=== PATIENT | male | born 1995 | race American Indian/Alaskan Native ===

== ENCOUNTER 2020-07-26 23:17 | Inpatient (IN) | payer OTHER, SELFPAY ==
[2020-07-26] MEDS ORDERED: ROCURONIUM 50 MG/5 ML INJ IV ONE ×2 (23:21→23:34)
[2020-07-26] MEDS ORDERED: ETOMIDATE 20 MG/10 ML INJ IV ONE ×2 (23:22→23:34)
[2020-07-26] MEDS ORDERED: SODIUM CHLORIDE 0.9% 1000 ML 1,000 ML IV ONE (23:34)
[2020-07-26] MEDS ORDERED: levETIRAcetam 1000 MG/NS 0.75% 1,000 MG/100 ML BAG IV ONE (23:34)
[2020-07-26] MEDS ORDERED: MINERAL OIL/PETROLATUM, WHITE OPHTH OINT 3.5 GM OU PRN (23:35)
[2020-07-26] MEDS ORDERED: LIP THERAPY VASELINE TP PRN (23:35)
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
[2020-07-27 00:10] LABS: Mean Corpuscular HGB Conc 29 % (32-34); Mean Corpuscular Volume 88 fl (84-94); Platelet Count 334 K/mm3 (140-440); Red Blood Count 4.39 M/mm3 (3.65-5.03)
[2020-07-27 00:14] LABS: Hematocrit 38.7 % (35.5-45.6); Hemoglobin 11.3 gm/dl (11.8-15.2); Red Cell Distribution Width 20.7 % (13.2-15.2)
[2020-07-27 00:16] LABS: Albumin 4.8 g/dL (3.9-5)
--- NOTE | 2020-07-27 00:34 | XRay Report ---
CHEST 1 VIEW, 07/26/2020 10:56 PM CLINICAL INFORMATION/INDICATION: Endotracheal tube placement COMPARISON: None. FINDINGS: SUPPORT DEVICES: The distal tip of the endotracheal tube is located approximately 5.5 cm above the le claus the moreno. An esophagogastric tube is also been placed with distal tip overlying the proximal st omach. HEART: The cardiac silhouette is normal in size. LUNGS/PLEURA: The lungs are clear of focal airspace disease or significant pleural effusion. ADDITIONAL FINDINGS: No additional acute findings. IMPRESSION: 1. Placement of endotracheal tube and esophagogastric tube as above. Signer Name: Janki Rouse MD Signed: 07/27/2020 12:29 AM Workstation Name: [email or web address]
[2020-07-27] MEDS ORDERED: LORazepam 2 MG/ML VIAL IV ONE ×2 (01:44)
[2020-07-27] MEDS ORDERED: [UNRECOGNIZED DRUG - OTHER] IV ONE (02:17)
[2020-07-27] MEDS ORDERED: FOSPHENYTOIN IV ONE (02:17)
[2020-07-27] MEDS ORDERED: SODIUM CHLORIDE IV ONE (02:17)
[2020-07-27 03:01] LABS: Total Cells Counted 100
[2020-07-27 03:02] LABS: Anisocytosis 1+; Hypochromasia 1+
--- NOTE | 2020-07-27 04:02 | Cat Scan Report ---
Examination: CT of the head without contrast Clinical information: Seizure. Altered mental status. Comparison: None Technical: Multiple axial CT images of the head were obtained without intravenous contrast. Sagittal and coronal reformats were obtained. All CTs at this facility utilize dose reduction techniques inc luding automated exposure control, iterative reconstruction and weight based dosing when appropriate to reduce patient radiation dose to as low as reasonable achievable. Findings: INTRACRANIAL CONTENTS: There are confluent regions of hypodensity and associated volume loss within t he bilateral frontal lobes. There is no CT evidence of acute intracranial hemorrhage. There is no kris dence of mass effect or midline shift. The ventricular system is normal in size and configuration. SKULL: Evaluation of the skull demonstrates previous right frontal convexity craniectomy ORBITS: The bilateral orbits and globes appear normal PARANASAL SINUSES / MASTOID AIR CELLS: Paranasal sinuses and mastoid air cells appear clear. There is a low-density fluid collection soft tissue fluid collection surrounding the right craniectom y site measuring a maximum of 8 mm in thickness. Impression: 1. Confluent regions of hypodensity and volume loss within the bilateral frontal lobes. Findings may be secondary to previous trauma or ischemia. Please correlate with patient's clinical circumstances. 2. Postsurgical changes from right convexity craniectomy. Signer Name: Janki Rouse MD Signed: 07/27/2020 3:58 AM Workstation Name: [id number]
--- NOTE | 2020-07-27 04:44 | Consultation ---
History of Present Illness Consult date: 07/27/20 Requesting physician: MARCOS CLARK Reason for consult: hypoxemia, other (status epilepticus) History of present illness: Patient is intubated and sedated so all history comes from the chart. 24 y/o male with prior history of seizure and TBI (cause unknown) was found down at home seizing by his mother and continued to seize until EMS got there. Aborted at that time with ativan. Per report was hypoxic in the field so bagged here. Once in the ED sats only in the low 90's and ED felt patient needed intubation for airway protection. Sedated with Diprovan and taken to CT. While in CT, per nurse, patient continued to seize, on Diprovan and required and additional 4 of Ativan to abort. He was then given Phosphenytoin on top of the keppra load that he already recieved. He is currently sedated and has not had any further seizure like activity since then. Past History Past Medical History: seizures, other (TBI) Past Surgical History: Other (unable to obtain) Social history: other (unable to obtain) Family history: other (unable to obtain) Medications and Allergies Allergies Allergy/AdvReac Type Severity Reaction Status Date / Time Unable to Assess Allergy Unverified 09/15/19 11:05 Active Meds: Active Medications Hydrophilic Ointment (Lip Therapy Vaseline) 1 applic TP Q2HR PRN PRN Reason: Dry Lips Sodium Chloride (Nacl 0.9% 1000 Ml) 1,000 mls @ 125 mls/hr IV ONCE ONE Stop: 07/27/20 07:33 Last Admin: 07/27/20 00:23 Dose: 125 mls/hr Documented by: Propofol (Diprivan 10 Mg/Ml) 1,000 mg in 100 mls @ 2.46 mls/hr IV TITR ALTA; Protocol Last Titration: 07/27/20 00:15 Dose: 30 mcg/kg/min, 14.76 mls/hr Documented by: Multi-Ingred Cream/Lotion/Oil/Oint (Mineral Oil/Petrolatum, White Ophth Oint 3.5 Gm) 1 applic OU Q4HR PRN PRN Reason: Dry Eye(s) Review of Systems ROS unobtainable: due to endotracheal tube, due to mental status Physical Examination Vital signs: Vital Signs Pulse Ox 98 07/26/20 23:20 General appearance: other (sedated) ENT: other (orally intubated) Neck: supple Effort: normal Ascultation: Bilateral: clear Results - Laboratory Findings CBC and BMP: 07/26/20 23:44 07/26/20 23:44 Abnormal lab findings: Abnormal Labs 07/26/20 07/26/20 23:44 23:44 WBC 18.3 H Hgb 11.3 L MCH 26 L MCHC 29 L RDW 20.7 H Lymphocytes % (Manual) 36.0 H Monocytes % (Manual) 8.0 H Seg Neutrophils # Man 9.5 H Lymphocytes # (Manual) 6.6 H Monocytes # (Manual) 1.5 H Eosinophils # (Manual) 0.5 H Basophils # (Manual) 0.2 H Chloride 95.2 L Carbon Dioxide 10 L BUN 8 L Creatinine 1.9 H Glucose 255 H AST 58 H Total Creatine Kinase 1147 H - Diagnostic Findings Chest x-ray: image reviewed Assessment and Plan 24 y/o with prior TBI and seizures admitted with status epilepticus and acute respiratory failure. 1. Needs EEG on and off sedation if possible to make sure seizures have been aborted 2. Neurology consult 3. Need to speak with mother to get more history regarding meds, exposures, compliance etc 4. ELIA, likely volume related, or pending how long he was seizing. Agree with volume and trend CK levels 5. Guarded to poor prognosis. Per nursing patient was awake but not sure exactly what type of wakeness they were dealing with. Per documentation, patient could be have been seizing for an extended period of time. CCT 31 minutes.
[2020-07-27] MEDS ORDERED: ACETAMINOPHEN 325 MG TAB PO PRN (05:37)
[2020-07-27] MEDS ORDERED: ALBUTEROL 2.5 MG/3 ML NEBU IH PRN (05:37)
[2020-07-27] MEDS ORDERED: ONDANSETRON 4 MG/2 ML INJ IV PRN (05:37)
[2020-07-27] MEDS ORDERED: hydrALAZINE 20 MG/1 ML INJ IV PRN (05:40)
--- NOTE | 2020-07-27 05:45 | History and Physical Report ---
History of Present Illness Date of examination: 07/27/20 Date of admission: 07/27/20 04:09 Chief complaint: Hypoxemia Seizure History of present illness: 24-year-old -[place] male with past medical history of seizure and TBI was brought to the emergency room because of prolonged seizure activity. His mother came home to find the patient seizing and called for EMS. He continued to seize until EMS arrived and for at least 5 minutes afterwards. EMS gave the patient 2 mg of lorazepam and the seizures stopped. However the patient had a room air pulse ox of about 75% and was exhibiting some shallow breathing so they began doing bag valve ventilation. He had an Accu-Chek in route that was about 200. When the patient arrived to the emergency department he was brought into bed #1. Without bag valve ventilation the patient's oxygen saturation goes down into the low 90s and he has bradypnea with shallow respirations. The patient was intubated for protection of airway. Past History Past Medical History: seizures, other (TBI) Past Surgical History: Other (unable to obtain) Social history: other (unable to obtain) Family history: other (unable to obtain) Medications and Allergies Allergies Allergy/AdvReac Type Severity Reaction Status Date / Time Unable to Assess Allergy Unverified 09/15/19 11:05 Active Meds: Active Medications Acetaminophen (Acetaminophen 325 Mg Tab) 650 mg PO Q4H PRN PRN Reason: Pain MILD(1-3)/Fever >100.5/DONG Albuterol (Albuterol 2.5 Mg/3 Ml Nebu) 2.5 mg IH Q4HRT PRN PRN Reason: Shortness Of Breath Albuterol/Ipratropium (Ipratropium/Albuterol Sulfate 3 Ml Ampul.Neb) 1 ampul IH Q6HRT ALTA Hydrophilic Ointment (Lip Therapy Vaseline) 1 applic TP Q2HR PRN PRN Reason: Dry Lips Sodium Chloride (Nacl 0.9% 1000 Ml) 1,000 mls @ 125 mls/hr IV ONCE ONE Stop: 07/27/20 07:33 Last Admin: 07/27/20 00:23 Dose: 125 mls/hr Documented by: Propofol (Diprivan 10 Mg/Ml) 1,000 mg in 100 mls @ 2.46 mls/hr IV TITR ALTA; Protocol Last Titration: 07/27/20 00:15 Dose: 30 mcg/kg/min, 14.76 mls/hr Documented by: Multi-Ingred Cream/Lotion/Oil/Oint (Mineral Oil/Petrolatum, White Ophth Oint 3.5 Gm) 1 applic OU Q4HR PRN PRN Reason: Dry Eye(s) Ondansetron HCl (Ondansetron 4 Mg/2 Ml Inj) 4 mg IV Q8H PRN PRN Reason: Nausea And Vomiting Sodium Chloride (Sodium Chloride 0.9% 10 Ml Flush Syringe) 10 ml IV BID ALTA Sodium Chloride (Sodium Chloride 0.9% 10 Ml Flush Syringe) 10 ml IV PRN PRN PRN Reason: LINE FLUSH Review of Systems Respiratory: shortness of breath, dyspnea on exertion Neurological: seizures Exam - Constitutional Vitals: Temp Pulse Resp BP Pulse Ox 98.7 F 80 16 124/69 100 07/27/20 01:31 07/27/20 04:30 07/27/20 04:30 07/27/20 04:30 07/27/20 04:30 General appearance: Present: severe distress, well-nourished - EENT Eyes: Present: PERRL ENT: hearing intact, clear oral mucosa - Neck Neck: Present: supple, normal ROM - Respiratory Respiratory effort: normal Respiratory: bilateral: diminished - Cardiovascular Heart Sounds: Present: S1 & S2. Absent: rub, click - Extremities Extremities: pulses symmetrical, No edema Peripheral Pulses: within normal limits - Abdominal General gastrointestinal: Present: soft, non-tender, non-distended, normal bowel sounds Male genitourinary: Present: normal - Integumentary Integumentary: Present: clear, warm, dry - Musculoskeletal Musculoskeletal: gait normal, strength equal bilaterally - Neurologic Neurologic: CNII-XII intact, moves all extremities, other (Patient is unresponsive patient is status post intubation) Results - Labs CBC & Chem 7: 07/26/20 23:44 07/26/20 23:44 Labs: Laboratory Last Values WBC 18.3 K/mm3 (4.5-11.0) H 07/26/20 23:44 RBC 4.39 M/mm3 (3.65-5.03) 07/26/20 23:44 Hgb 11.3 gm/dl (11.8-15.2) L 07/26/20 23:44 Hct 38.7 % (35.5-45.6) 07/26/20 23:44 MCV 88 fl (84-94) 07/26/20 23:44 MCH 26 pg (28-32) L 07/26/20 23:44 MCHC 29 % (32-34) L 07/26/20 23:44 RDW 20.7 % (13.2-15.2) H 07/26/20 23:44 Plt Count 334 K/mm3 (140-440) 07/26/20 23:44 Lymph # (Auto) Pharmacy Resource Tech 07/26/20 23:44 Add Manual Diff Complete 07/26/20 23:44 Total Counted 100 07/26/20 23:44 Seg Neuts % (Manual) 52.0 % (40.0-70.0) 07/26/20 23:44 Lymphocytes % (Manual) 36.0 % (13.4-35.0) H 07/26/20 23:44 Monocytes % (Manual) 8.0 % (0.0-7.3) H 07/26/20 23:44 Eosinophils % (Manual) 3.0 % (0.0-4.3) 07/26/20 23:44 Basophils % (Manual) 1.0 % (0.0-1.8) 07/26/20 23:44 Nucleated RBC % Not Reportable 07/26/20 23:44 Seg Neutrophils # Man 9.5 K/mm3 (1.8-7.7) H 07/26/20 23:44 Band Neutrophils # 0.0 K/mm3 07/26/20 23:44 Lymphocytes # (Manual) 6.6 K/mm3 (1.2-5.4) H 07/26/20 23:44 Abs React Lymphs (Man) 0.0 K/mm3 07/26/20 23:44 Monocytes # (Manual) 1.5 K/mm3 (0.0-0.8) H 07/26/20 23:44 Eosinophils # (Manual) 0.5 K/mm3 (0.0-0.4) H 07/26/20 23:44 Basophils # (Manual) 0.2 K/mm3 (0.0-0.1) H 07/26/20 23:44 Metamyelocytes # 0.0 K/mm3 07/26/20 23:44 Myelocytes # 0.0 K/mm3 07/26/20 23:44 Promyelocytes # 0.0 K/mm3 07/26/20 23:44 Blast Cells # 0.0 K/mm3 07/26/20 23:44 WBC Morphology Not Reportable 07/26/20 23:44 Hypersegmented Neuts Not Reportable 07/26/20 23:44 Hyposegmented Neuts Not Reportable 07/26/20 23:44 Hypogranular Neuts Not Reportable 07/26/20 23:44 Smudge Cells Not Reportable 07/26/20 23:44 Toxic Granulation Not Reportable 07/26/20 23:44 Toxic Vacuolation Not Reportable 07/26/20 23:44 Dohle Bodies Not Reportable 07/26/20 23:44 Pelger-Huet Anomaly Not Reportable 07/26/20 23:44 Sherlyn Rods Not Reportable 07/26/20 23:44 Platelet Estimate Not Reportable 07/26/20 23:44 Clumped Platelets Not Reportable 07/26/20 23:44 Plt Clumps, EDTA Not Reportable 07/26/20 23:44 Large Platelets Not Reportable 07/26/20 23:44 Giant Platelets Not Reportable 07/26/20 23:44 Platelet Satelliting Not Reportable 07/26/20 23:44 Plt Morphology Comment Not Reportable 07/26/20 23:44 RBC Morphology Not Reportable 07/26/20 23:44 Dimorphic RBCs Not Reportable 07/26/20 23:44 Polychromasia Not Reportable 07/26/20 23:44 Hypochromasia 1+ 07/26/20 23:44 Poikilocytosis Not Reportable 07/26/20 23:44 Anisocytosis 1+ 07/26/20 23:44 Microcytosis Few 07/26/20 23:44 Macrocytosis Not Reportable 07/26/20 23:44 Spherocytes Not Reportable 07/26/20 23:44 Pappenheimer Bodies Not Reportable 07/26/20 23:44 Sickle Cells Not Reportable 07/26/20 23:44 Target Cells Not Reportable 07/26/20 23:44 Tear Drop Cells Not Reportable 07/26/20 23:44 Ovalocytes Not Reportable 07/26/20 23:44 Helmet Cells Not Reportable 07/26/20 23:44 Denis-Ayr Bodies Not Reportable 07/26/20 23:44 [place] Rings Not Reportable 07/26/20 23:44 [place] Cells Not Reportable 07/26/20 23:44 Bite Cells Not Reportable 07/26/20 23:44 Crenated Cell Not Reportable 07/26/20 23:44 Elliptocytes Not Reportable 07/26/20 23:44 Acanthocytes (Spur) Not Reportable 07/26/20 23:44 Rouleaux Not Reportable 07/26/20 23:44 Hemoglobin C Crystals Not Reportable 07/26/20 23:44 Schistocytes Not Reportable 07/26/20 23:44 Malaria parasites Not Reportable 07/26/20 23:44 Edin Bodies Not Reportable 07/26/20 23:44 Hem Pathologist Commnt No 07/26/20 23:44 Sodium 137 mmol/L (137-145) 07/26/20 23:44 Potassium 4.2 mmol/L (3.6-5.0) 07/26/20 23:44 Chloride 95.2 mmol/L (98-107) L 07/26/20 23:44 Carbon Dioxide 10 mmol/L (22-30) L 07/26/20 23:44 Anion Gap 36 mmol/L 07/26/20 23:44 BUN 8 mg/dL (9-20) L 07/26/20 23:44 Creatinine 1.9 mg/dL (0.8-1.3) H 07/26/20 23:44 Estimated GFR 54 ml/min 07/26/20 23:44 BUN/Creatinine Ratio 4 % 07/26/20 23:44 Glucose 255 mg/dL (75-100) H 07/26/20 23:44 Calcium 9.0 mg/dL (8.4-10.2) 07/26/20 23:44 Total Bilirubin 0.40 mg/dL (0.1-1.2) 07/26/20 23:44 AST 58 units/L (5-40) H 07/26/20 23:44 ALT 23 units/L (7-56) 07/26/20 23:44 Alkaline Phosphatase 78 units/L (35-129) 07/26/20 23:44 Total Creatine Kinase 1147 units/L (55-170) H 07/26/20 23:44 Total Protein 7.8 g/dL (6.3-8.2) 07/26/20 23:44 Albumin 4.8 g/dL (3.9-5) 07/26/20 23:44 Albumin/Globulin Ratio 1.6 % 07/26/20 23:44 TSH 3.550 mlU/mL (0.270-4.200) 07/26/20 23:44 Plasma/Serum Alcohol < 0.01 % (0-0.07) 07/26/20 23:44 - Imaging and Cardiology CT Scan - head: report reviewed Assessment and Plan VTE prophylaxis?: Chemical Plan of care discussed with patient/family: Yes - Patient Problems (1) Acute respiratory failure Current Visit: Yes Status: Acute Qualifiers: Respiratory failure complication: unspecified whether with hypoxia or hypercapnia Qualified Code(s): J96.00 - Acute respiratory failure, unspecified whether with hypoxia or hypercapnia Plan to address problem: Admit the patient to the ICU. Patient is status post intubation. DuoNeb by nebulizer every 4 hours. Albuterol by nebulizer every 4 hours as needed. Patient is seen and evaluated by pulmonary (2) Status epilepticus Current Visit: Yes Status: Acute Plan to address problem: Keppra 1000 mg IV x1 dose then 500 mg IV every 12 hours. Patient also get fosphenytoin 6100 g IV x1 dose. We order EEG. Ativan as needed. We also order MRI of the brain without IV contrast. Consult neurology in the morning if needed (3) History of traumatic brain injury Current Visit: Yes Status: Acute Plan to address problem: Stable. We will put the patient on Keppra 500 mg IV every 12 hours. Ativan as needed EEG and MRI of the brain without contrast. Consult neurology in the morning if needed (4) Hyperglycemia Current Visit: Yes Status: Acute Plan to address problem: We will monitor the glucose closely. If needed we will put the patient on insulin sliding scale. Repeat BMP in the morning (5) DVT prophylaxis Current Visit: Yes Status: Acute Plan to address problem: Heparin 5000 units subcu every 8 hours for DVT prophylaxis. Pepcid 20 mg IV twice daily for GI prophylaxis. Patient is a full code.
[2020-07-27] MEDS ORDERED: D5W/0.9% NACL 1,000 ML IV SCH (06:00)
[2020-07-27 06:44] LABS: ABG Base Excess -3.2 mmol/L (-2.0-3.0); ABG HCO3 20.9 mmol/L (20.0-26.0); ABG Methemoglobin 0.5 % (0.0-1.5); ABG Oxygen Saturation 98.5 % (95.0-99.0); ABG PH 7.406 pH Units (7.350-7.450); ABG PO2 125.7 mm Hg (80.0-90.0)
--- NOTE | 2020-07-27 07:51 | Consultation ---
History of Present Illness Consult date: 07/27/20 Reason for Consult: Status Epilepticus History of present illness: Hypoxemia Seizure History of present illness: 24-year-old -[place] male with past medical history of seizure and TBI was brought to the emergency room because of prolonged seizure activity. His mother came home to find the patient seizing and called for EMS. He continued to seize until EMS arrived and for at least 5 minutes afterwards. EMS gave the patient 2 mg of lorazepam and the seizures stopped. However the patient had a room air pulse ox of about 75% and was exhibiting some shallow breathing so they began doing bag valve ventilation. He had an Accu-Chek in route that was about 200. When the patient arrived to the emergency department he was brought into bed #1. Without bag valve ventilation the patient's oxygen saturation goes down into the low 90s and he has bradypnea with shallow respirations. The patient was intubated for protection of airway. he is currently intubated sedated with Propofol 30 Mc No witnessed seizure Past History Past Medical History: seizures, other (TBI) Past Surgical History: Other (unable to obtain) Social history: other (unable to obtain) Family history: other (unable to obtain) Medications and Allergies Allergies Allergy/AdvReac Type Severity Reaction Status Date / Time Unable to Assess Allergy Unverified 09/15/19 11:05 Active Meds: Active Medications Acetaminophen (Acetaminophen 325 Mg Tab) 650 mg PO Q4H PRN PRN Reason: Pain MILD(1-3)/Fever >100.5/DONG Albuterol (Albuterol 2.5 Mg/3 Ml Nebu) 2.5 mg IH Q4HRT PRN PRN Reason: Shortness Of Breath Albuterol/Ipratropium (Ipratropium/Albuterol Sulfate 3 Ml Ampul.Neb) 1 ampul IH Q6HRT ALTA Hydrophilic Ointment (Lip Therapy Vaseline) 1 applic TP Q2HR PRN PRN Reason: Dry Lips Sodium Chloride (Nacl 0.9% 1000 Ml) 1,000 mls @ 125 mls/hr IV ONCE ONE Stop: 07/27/20 07:33 Last Admin: 07/27/20 00:23 Dose: 125 mls/hr Documented by: Propofol (Diprivan 10 Mg/Ml) 1,000 mg in 100 mls @ 2.46 mls/hr IV TITR ALTA; Protocol Last Titration: 07/27/20 00:15 Dose: 30 mcg/kg/min, 14.76 mls/hr Documented by: Multi-Ingred Cream/Lotion/Oil/Oint (Mineral Oil/Petrolatum, White Ophth Oint 3.5 Gm) 1 applic OU Q4HR PRN PRN Reason: Dry Eye(s) Ondansetron HCl (Ondansetron 4 Mg/2 Ml Inj) 4 mg IV Q8H PRN PRN Reason: Nausea And Vomiting Sodium Chloride (Sodium Chloride 0.9% 10 Ml Flush Syringe) 10 ml IV BID ALTA Sodium Chloride (Sodium Chloride 0.9% 10 Ml Flush Syringe) 10 ml IV PRN PRN PRN Reason: LINE FLUSH Review of Systems Respiratory: shortness of breath, dyspnea on exertion Neurological: seizures Past History Past Medical History: seizures, other (TBI) Past Surgical History: Other (unable to obtain) Social history: other (unable to obtain) Family history: other (unable to obtain) Medications and Allergies Allergies Allergy/AdvReac Type Severity Reaction Status Date / Time Unable to Assess Allergy Unverified 09/15/19 11:05 Home Medications Medication Instructions Recorded Confirmed Last Taken Type No Known Home Medications [No 07/27/20 07/27/20 Unknown History Reported Home Medications] Active Meds: Active Medications Acetaminophen (Acetaminophen 325 Mg Tab) 650 mg PO Q4H PRN PRN Reason: Pain MILD(1-3)/Fever >100.5/DONG Albuterol (Albuterol 2.5 Mg/3 Ml Nebu) 2.5 mg IH Q4HRT PRN PRN Reason: Shortness Of Breath Albuterol/Ipratropium (Ipratropium/Albuterol Sulfate 3 Ml Ampul.Neb) 1 ampul IH Q6HRT ALTA Famotidine (Famotidine 20 Mg/2 Ml Inj) 20 mg IV QAM ALTA Heparin Sodium (Porcine) (Heparin 5,000 Unit/1 Ml Vial) 5,000 unit SUB-Q Q8HR ALTA Hydralazine HCl (Hydralazine 20 Mg/1 Ml Inj) 10 mg IV Q6H PRN PRN Reason: htn Hydrophilic Ointment (Lip Therapy Vaseline) 1 applic TP Q2HR PRN PRN Reason: Dry Lips Propofol (Diprivan 10 Mg/Ml) 1,000 mg in 100 mls @ 2.46 mls/hr IV TITR ALTA; Protocol Last Titration: 07/27/20 00:15 Dose: 30 mcg/kg/min, 14.76 mls/hr Documented by: Dextrose/Sodium Chloride (D5ns) 1,000 mls @ 100 mls/hr IV DIRECT ALTA Levetiracetam 500 mg/ Dextrose 105 mls @ 400 mls/hr IV Q12HR ALTA Multi-Ingred Cream/Lotion/Oil/Oint (Mineral Oil/Petrolatum, White Ophth Oint 3.5 Gm) 1 applic OU Q4HR PRN PRN Reason: Dry Eye(s) Ondansetron HCl (Ondansetron 4 Mg/2 Ml Inj) 4 mg IV Q8H PRN PRN Reason: Nausea And Vomiting Sodium Chloride (Sodium Chloride 0.9% 10 Ml Flush Syringe) 10 ml IV BID ALTA Sodium Chloride (Sodium Chloride 0.9% 10 Ml Flush Syringe) 10 ml IV PRN PRN PRN Reason: LINE FLUSH Physical Examination - Vital Signs Vital Signs: Vital Signs Pulse Ox 98 07/26/20 23:20 - Constitutional General appearance: comfortable - EENT EENT: Present: PERRL - Respiratory Respiratory: Present: chest non-tender, lungs clear, rhonchi - Cardiovascular Cardiovascular: Present: regular rate, normal S1, normal S2 Extremities: Present: no peripheral edema bilatateraly - Gastrointestinal Gastrointestinal: Present: normoactive bowel sounds - Integumentary Integumentary: Present: normal - Neurologic Cranial nerve examination: PERRL, EOMI, intact Speech examination: other (intubated and sedated) Sensorimotor examination: intact Detailed motor examination: other (slight withdrawal to pain stimuli) Results - Laboratory Findings CBC and BMP: 07/27/20 10:41 07/27/20 10:41 Abnormal Lab Findings: Abnormal Labs 07/26/20 07/26/20 07/27/20 23:44 23:44 Unknown WBC 18.3 H Hgb 11.3 L MCH 26 L MCHC 29 L RDW 20.7 H Lymphocytes % (Manual) 36.0 H Monocytes % (Manual) 8.0 H Seg Neutrophils # Man 9.5 H Lymphocytes # (Manual) 6.6 H Monocytes # (Manual) 1.5 H Eosinophils # (Manual) 0.5 H Basophils # (Manual) 0.2 H ABG pO2 125.7 H ABG Base Excess -3.2 L ABG Hemoglobin 10.6 L Chloride 95.2 L Carbon Dioxide 10 L BUN 8 L Creatinine 1.9 H Glucose 255 H AST 58 H Total Creatine Kinase 1147 H Assessment and Plan Assessment and Plan # Acute respiratory failure -whether with hypoxia or hypercapnia - related to seizure R/O infection -Admit the patient to the ICU. Patient is status post intubation. DuoNeb by nebulizer every 4 hours. Albuterol by nebulizer every 4 hours as needed. Patient is seen and evaluated by pulmonary # Status epilepticus -Keppra 1000 mg IV x1 dose -then 1000 mg IV every 12 hours. - Patient also get fosphenytoin 6100 g IV x1 dose. - EEG today. - Ativan as needed. - We also order MRI of the brain w/o IV contrast. -Ct brain showed bifrontal hypodensity # History of traumatic brain injury -Stable. # Hyperglycemia -We will monitor the glucose closely. # DVT prophylaxis -Heparin 5000 units subcu every 8 hours for DVT prophylaxis. - Pepcid 20 mg IV twice daily for GI prophylaxis. - Patient is a full code.
[2020-07-27] MEDS ORDERED: DEXTROSE 50% IN WATER (25GM) 50 ML SYRINGE IV PRN (08:09)
[2020-07-27] MEDS: IPRATROPIUM/ALBUTEROL SULFATE 3 ML AMPUL.NEB IH SCH ×3 (08:09→19:58)
--- NOTE | 2020-07-27 08:23 | XRay Report ---
CHEST - 1 VIEW 0713 hours INDICATION: follow up respiratory failure COMPARISON: Yesterday FINDINGS: Support devices: Stable positioning of the endotracheal tube and nasogastric tube Heart: Normal Lungs/pleura: Left basilar atelectatic changes have nearly resolved. The lungs are clear otherwise. Additional findings: None. IMPRESSION: Near normal AP chest. Minor left basilar atelectasis remains. Signer Name: Krishna Aceves Jr, MD Signed: 07/27/2020 8:18 AM Workstation Name: [id number]
[2020-07-27] MEDS ORDERED: FAMOTIDINE 20 MG/2 ML INJ IV SCH (10:00)
[2020-07-27] MEDS ORDERED: levETIRAcetam 500 MG in DEXTROSE 5% IN WATER 100 ML IV SCH (10:00)
[2020-07-27] MEDS: FAMOTIDINE 20 MG/2 ML INJ IV SCH ×2 (10:07→21:10)
[2020-07-27] MEDS: INSULIN REGULAR, HUMAN 100 UNITS/1 ML SUB-Q SCH ×3 (10:08→18:38)
[2020-07-27] MEDS: HEPARIN 5,000 UNIT/1 ML VIAL SUB-Q SCH ×3 (10:09→21:10)
[2020-07-27 11:05] LABS: Hematocrit 38.8 % (35.5-45.6); Hemoglobin 12.2 gm/dl (11.8-15.2); Mean Corpuscular HGB Conc 32 % (32-34); Mean Corpuscular Volume 80 fl (84-94); Platelet Count 211 K/mm3 (140-440); Red Blood Count 4.83 M/mm3 (3.65-5.03)
[2020-07-27 11:08] LABS: BUN/Creatinine Ratio 6; Blood Urea Nitrogen 8 mg/dL (9-20); Calcium 9.2 mg/dL (8.4-10.2); Hemolysis Index 6
[2020-07-27 11:21] LABS: Red Cell Distribution Width 20.3 % (13.2-15.2)
[2020-07-27] MEDS ORDERED: LIPASE 10,500/PROTEASE 25,000/AMYLASE 43,750 (UNITS) DR CAP FEEDTUBE PRN (12:05)
[2020-07-27] MEDS ORDERED: SIMPLE SYRUP 15 ML FEEDTUBE PRN ×2 (12:05)
[2020-07-27] MEDS ORDERED: SODIUM BICARBONATE 325 MG TAB FEEDTUBE PRN (12:05)
[2020-07-27 12:15] LABS: Amphetamine Screen,Urine Negative; Benzodiazepines Screen,Urine Negative; Cocaine Screen,Urine Negative; Methadone Screen,Urine Negative; Opiate Screen,Urine Negative
[2020-07-27 12:21] LABS: Bacteria,Urine 1+ /HPF (Negative); Bilirubin,Urine NEG (Negative); Blood,Urine MOD (Negative); Color,Urine Straw (Yellow); Mucus,Urine FEW /HPF; Protein,Urine <15 mg/dL mg/dL (Negative); Triple Phosphate Crystal,Urine FEW; Urobilinogen,Urine < 2.0 mg/dL (<2.0)
[2020-07-27 13:00] LABS: Cannabinoid Screen,Urine PRESUMPTIVE POSITIVE
[2020-07-27] MEDS: levETIRAcetam 1,000 MG in DEXTROSE 5% IN WATER 100 ML IV SCH ×2 (15:57→21:12)
--- NOTE | 2020-07-27 17:31 | Event Note ---
This is a 24-year-old male with seizures and TBI presents the emergency department on 07/27 after being found down at home seizing by his mother and continued to seize until EMS arrival and patient was administered 2 mg of Ativan to report seizures. Patient was hypoxic at this time with shallow breathing and was bagged. On arrival to the emergency department patient was hypoxic to the low 90s with shallow respirations and bradypnea and was intubated for airway protection. Patient was sedated with dipper Van and taken to CT and while the patient continued to seize and required additional 4 mg of Ativan to abort. Patient was loaded with Keppra and received fosphenytoin for continued seizure activity. Lab work revealed leukocytosis, acute kidney injury, metabolic acidosis, hyperglycemia and rhabdomyolysis. Patient was admitted to the hospital service with status epilepticus, acute respiratory failure, acute kidney injury, hyperglycemia and rhabdomyolysis with consults to [facility] and his neurologist. 07/27: Neurology was consulted this morning, MRI brain pending, Ntr consult placed. KUB ordered to start TF. EEG completed and per neurology it is remarkable for diffuse slowing with no eplieptiform discharges noted. PE: Constitutional: Patient sedated on mechanical ventilation Neuro: Pupils equal and reactive, cranium with postoperative changes, does not follow commands, sedated CV: S1/S2 auscultated, no murmur or gallop appreciated, peripheral pulses palpable x4, cap refill less than 3 seconds x 4 extremities Respiratory: O ETT, on assist control ventilation tidal volume 500, rate of 16, PEEP of 6 and 30% FiO2 at the time of my examination, CTA, regular rate and rhythm GI: NG tube clamped, abdomen nondistended nontender, bowel sounds x4 quadrants : Voiding Skin: CDI, warm, dry MS: Unable to assess given neurological status in most likely postictal state This is a 24-year-old male with seizures and TBI was monitored for status epilepticus, acute respiratory failure, hyperglycemia, acute kidney injury and rhabdomyolysis Status epilepticus Acute hypoxic respiratory failure Acute kidney injury Rhabdomyolysis Leukocytosis (improved) Hypochloremia (resolved) Metabolic acidosis (resolved) UDS positive for marijuana COVID 19 PUI, ruled out Hyperglycemia Hx of TBI Hx of Seizures -[facility], neurology consulted, patient recommendations -Keppra 1000 mg x 1, fosphenytoin 1600 mgx1 in the emergency department -Keppra 1000 mg twice daily -Ativan as needed -Seizure and aspiration precautions -Hydralazine PPI -SSI, Accu-Cheks every 6 -07/27 EEG pending official read -07/27 MRI Brain pending -07/27 CXR shows some minor left basilar atelectasis -07/26 CT head shows confluent regions of hypodensity and volume loss within the bilateral frontal lobes, findings may be secondary to previous trauma or ischemia, postsurgical changes from right convexity craniectomy, no evidence of mass-effect or midline shift, or acute intracranial hemorrhage DVT/GI prophylaxis: Heparin subcu, SCDs to bilateral lower extremities, PPI Disposition: ICU The high probability of a clinically significant, sudden or life threatening deterioration of the [multi] system(s) required my full and direct attention, intervention and personal management. The aggregate critical care time was [35] minutes. This time is in addition to time spent performing reported procedures but includes the following: [x] Data Review and interpretation [x] Patient assessment and monitoring of vital signs [x] Documentation [x] Medication orders and management
--- NOTE | 2020-07-27 18:08 | XRay Report ---
ABDOMEN 1 VIEW INDICATION / CLINICAL INFORMATION: NGT placement. COMPARISON: Not available. FINDINGS: TUBES / LINES: An NG tube has been placed with the tip projecting over the gastric fundus and the vale ehole of the tube located over the distal third of the esophagus. BOWEL GAS PATTERN: No dilated bowel loops are seen. The colon contains a large amount of stool. FREE AIR / EXTRALUMINAL GAS: None seen. ADDITIONAL FINDINGS: No significant additional findings. IMPRESSION: NG tube as above. Advancement of the tube by 5 cm should result in the sidehole of the tube being loc ated in the stomach. Signer Name: Zeferino Ashton MD Signed: 07/27/2020 6:04 PM Workstation Name: [id number]
[2020-07-28] MEDS: IPRATROPIUM/ALBUTEROL SULFATE 3 ML AMPUL.NEB IH SCH ×4 (05:21→21:57)
--- NOTE | 2020-07-28 06:04 | XRay Report ---
CHEST 1 VIEW, 07/28/2020 1:31 AM CLINICAL INFORMATION/INDICATION: Respiratory failure COMPARISON: Chest radiograph, 07/27/2020 at 7:13 AM FINDINGS: SUPPORT DEVICES: Endotracheal tube and esophagogastric tube remain in stable position. HEART: The cardiac silhouette is normal in size. LUNGS/PLEURA: Lungs are clear of focal airspace disease or significant pleural effusion. ADDITIONAL FINDINGS: No additional acute findings. IMPRESSION: 1. Stable appearance of the chest. Signer Name: Janki Rouse MD Signed: 07/28/2020 6:00 AM Workstation Name: [id number]
[2020-07-28] MEDS: HEPARIN 5,000 UNIT/1 ML VIAL SUB-Q SCH ×3 (06:12→23:34)
[2020-07-28] MEDS: INSULIN REGULAR, HUMAN 100 UNITS/1 ML SUB-Q SCH ×4 (06:13→18:26)
[2020-07-28] MEDS: LORazepam 2 MG/ML VIAL IV PRN ×2 (06:14→23:49)
[2020-07-28 06:58] LABS: Basophils % (Auto) 0.3 % (0.0-1.8); Eosinophils # (Auto) 0.1 K/mm3 (0.0-0.4); Eosinophils % (Auto) 1.1 % (0.0-4.3); Hematocrit 34.6 % (35.5-45.6); Hemoglobin 11.1 gm/dl (11.8-15.2); Lymphocytes # (Auto) 0.9 K/mm3 (1.2-5.4); Lymphocytes % (Auto) 8.9 % (13.4-35.0); Mean Corpuscular HGB Conc 32 % (32-34); Mean Corpuscular Volume 81 fl (84-94); Monocytes # (Auto) 1.1 K/mm3 (0.0-0.8); Monocytes % (Auto) 11.1 % (0.0-7.3); Platelet Count 179 K/mm3 (140-440); Red Blood Count 4.28 M/mm3 (3.65-5.03)
[2020-07-28 07:01] LABS: Red Cell Distribution Width 20.3 % (13.2-15.2)
[2020-07-28 07:10] LABS: BUN/Creatinine Ratio 8; Blood Urea Nitrogen 8 mg/dL (9-20); Calcium 9.1 mg/dL (8.4-10.2); Hemolysis Index 10
--- NOTE | 2020-07-28 10:38 | Progress Note ---
Assessment and Plan Assessment and Plan # Acute respiratory failure -Today more interactive moving all limbs no witnessed seizure since admission -On Keppra 1000 mg bid -MRI is pending -EEG -- mild diffuse slowing -whether with hypoxia or hypercapnia - related to seizure R/O infection -Admit the patient to the ICU. Patient is status post intubation. DuoNeb by nebulizer every 4 hours. Albuterol by nebulizer every 4 hours as needed. Patient -is seen and evaluated by pulmonary - # Status epilepticus -Keppra 1000 mg IV x1 dose -then 1000 mg IV every 12 hours. - Patient also get fosphenytoin 6100 g IV x1 dose. - EEG diffuse slowing - Ativan as needed. - We also order MRI of the brain w/o IV contrast. -Ct brain showed bifrontal hypodensity # History of traumatic brain injury -Stable. # Hyperglycemia -We will monitor the glucose closely. # DVT prophylaxis -Heparin 5000 units subcu every 8 hours for DVT prophylaxis. - Pepcid 20 mg IV twice daily for GI prophylaxis. - Patient is a full code. Subjective Date of service: 07/28/20 Principal diagnosis: Seizure Interval history: doing well still intubated and sedated on [facility] [place] propofol moving all limbs follow command No witnessed seizure EEG is remarkable for mild slowing 5-7 HZ . no epileptiform discharges is noted MRI is pending Objective - Vital Sign Vital Signs - 12hr 07/27/20 07/27/20 07/27/20 23:00 23:30 23:54 Temperature Pulse Rate 83 83 84 Pulse Rate [ Anterior Bilateral Throughout] Respiratory 16 17 16 Rate Respiratory Rate [Anterior Bilateral Throughout] Blood Pressure 125/67 119/69 119/69 O2 Sat by Pulse 100 100 100 Oximetry 07/28/20 07/28/20 07/28/20 00:00 00:30 00:48 Temperature 98.9 F Pulse Rate 90 111 H 110 H Pulse Rate [ Anterior Bilateral Throughout] Respiratory 16 19 Rate Respiratory Rate [Anterior Bilateral Throughout] Blood Pressure 138/83 138/83 138/73 O2 Sat by Pulse 100 100 100 Oximetry 07/28/20 07/28/20 07/28/20 01:00 01:30 01:58 Temperature Pulse Rate 92 H 87 Pulse Rate [ 94 H Anterior Bilateral Throughout] Respiratory 16 18 Rate Respiratory 20 Rate [Anterior Bilateral Throughout] Blood Pressure 140/79 138/73 O2 Sat by Pulse 100 95 Oximetry 07/28/20 07/28/20 07/28/20 02:00 02:30 03:00 Temperature Pulse Rate 87 86 85 Pulse Rate [ Anterior Bilateral Throughout] Respiratory 18 17 16 Rate Respiratory Rate [Anterior Bilateral Throughout] Blood Pressure 113/64 137/80 124/71 O2 Sat by Pulse 97 100 99 Oximetry 07/28/20 07/28/20 07/28/20 03:23 03:30 04:00 Temperature 99.1 F Pulse Rate 88 84 Pulse Rate [ Anterior Bilateral Throughout] Respiratory 16 16 Rate Respiratory Rate [Anterior Bilateral Throughout] Blood Pressure 127/72 125/78 O2 Sat by Pulse 100 100 Oximetry 07/28/20 07/28/20 07/28/20 04:30 05:00 05:30 Temperature Pulse Rate 88 89 108 H Pulse Rate [ Anterior Bilateral Throughout] Respiratory 16 16 13 Rate Respiratory Rate [Anterior Bilateral Throughout] Blood Pressure 125/73 123/68 136/94 O2 Sat by Pulse 100 100 100 Oximetry 07/28/20 07/28/20 07/28/20 06:00 06:30 07:00 Temperature Pulse Rate 108 H 87 85 Pulse Rate [ Anterior Bilateral Throughout] Respiratory 17 14 15 Rate Respiratory Rate [Anterior Bilateral Throughout] Blood Pressure 136/94 124/66 125/62 O2 Sat by Pulse 100 100 100 Oximetry 07/28/20 07/28/20 07/28/20 07:30 08:00 08:30 Temperature Pulse Rate 104 H 93 H 93 H Pulse Rate [ Anterior Bilateral Throughout] Respiratory 17 17 18 Rate Respiratory Rate [Anterior Bilateral Throughout] Blood Pressure 124/66 122/65 121/71 O2 Sat by Pulse 99 95 97 Oximetry 07/28/20 09:00 Temperature Pulse Rate 93 H Pulse Rate [ Anterior Bilateral Throughout] Respiratory 16 Rate Respiratory Rate [Anterior Bilateral Throughout] Blood Pressure 111/51 O2 Sat by Pulse 98 Oximetry - General Apperance Constitutional: comfortable - EENT EENT: PERRL, mucous membranes moist - Respiratory Respiratory: chest non-tender, lungs clear, rhonchi - Cardiovascular Cardiovascular: regular rate, normal S1, normal S2 Extremities: no peripheral edema bilat, no clubbing, cyanosis - Gastrointestinal Gastrointestinal: normoactive bowel sounds - Integumentary Integumentary: normal - Neurologic Cranial nerve examination: PERRL, EOMI, VFF, anisocoria, intact Detailed motor examination: grossly full strength in - Laboratory Findings CBC and BMP: 07/28/20 06:32 07/28/20 06:32 Abnormal Lab Findings: Abnormal Labs 07/26/20 07/26/20 07/27/20 23:44 23:44 10:41 WBC 18.3 H 12.2 H Hgb 11.3 L Hct MCV 80 L MCH 26 L 25 L MCHC 29 L RDW 20.7 H 20.3 H Lymph % (Auto) [place] % (Auto) Lymph # (Auto) [place] # (Auto) Seg Neutrophils % Lymphocytes % (Manual) 36.0 H Monocytes % (Manual) 8.0 H Seg Neutrophils # Seg Neutrophils # Man 9.5 H Lymphocytes # (Manual) 6.6 H Monocytes # (Manual) 1.5 H Eosinophils # (Manual) 0.5 H Basophils # (Manual) 0.2 H ABG pO2 ABG Base Excess ABG Hemoglobin Chloride 95.2 L Carbon Dioxide 10 L BUN 8 L Creatinine 1.9 H Glucose 255 H POC Glucose AST 58 H Total Creatine Kinase 1147 H 07/27/20 07/27/20 07/27/20 10:41 23:36 Unknown WBC Hgb Hct MCV MCH MCHC RDW Lymph % (Auto) [place] % (Auto) Lymph # (Auto) [place] # (Auto) Seg Neutrophils % Lymphocytes % (Manual) Monocytes % (Manual) Seg Neutrophils # Seg Neutrophils # Man Lymphocytes # (Manual) Monocytes # (Manual) Eosinophils # (Manual) Basophils # (Manual) ABG pO2 125.7 H ABG Base Excess -3.2 L ABG Hemoglobin 10.6 L Chloride Carbon Dioxide BUN 8 L Creatinine Glucose 110 H POC Glucose 107 H AST Total Creatine Kinase 07/28/20 07/28/20 07/28/20 05:18 06:32 06:32 WBC Hgb 11.1 L Hct 34.6 L MCV 81 L MCH 26 L MCHC RDW 20.3 H Lymph % (Auto) 8.9 L [place] % (Auto) 11.1 H Lymph # (Auto) 0.9 L [place] # (Auto) 1.1 H Seg Neutrophils % 78.6 H Lymphocytes % (Manual) Monocytes % (Manual) Seg Neutrophils # 7.9 H Seg Neutrophils # Man Lymphocytes # (Manual) Monocytes # (Manual) Eosinophils # (Manual) Basophils # (Manual) ABG pO2 ABG Base Excess ABG Hemoglobin Chloride Carbon Dioxide BUN 8 L Creatinine Glucose 106 H POC Glucose 120 H AST Total Creatine Kinase
[2020-07-28] MEDS: levETIRAcetam 1,000 MG in DEXTROSE 5% IN WATER 100 ML IV SCH ×2 (11:01→23:43)
[2020-07-28] MEDS: FAMOTIDINE 20 MG TAB PO SCH ×2 (11:01→23:34)
--- NOTE | 2020-07-28 11:27 | Progress Note ---
Assessment and Plan 24 y/o with prior TBI and seizures admitted with status epilepticus and acute respiratory failure. 07/28/20: Extubate today. Once extubated, transfer to floor. Follow up neurology recs, doubt he will be still enough for MRI. Will sign off once out of unit. 1. Needs EEG on and off sedation if possible to make sure seizures have been aborted 2. Neurology consult 3. Need to speak with mother to get more history regarding meds, exposures, compliance etc 4. ELIA, likely volume related, or pending how long he was seizing. Agree with volume and trend CK levels 5. Guarded to poor prognosis. Per nursing patient was awake but not sure exactly what type of wakeness they were dealing with. Per documentation, patient could be have been seizing for an extended period of time. CCT 31 minutes. Subjective Date of service: 07/28/20 Principal diagnosis: Seizure Interval history: Extubate today. Awake on diprovan. No seizures. Objective Vital Signs - 12hr 07/27/20 07/27/20 07/28/20 23:30 23:54 00:00 Temperature 98.9 F Pulse Rate 83 84 90 Pulse Rate [ Anterior Bilateral Throughout] Respiratory 17 16 16 Rate Respiratory Rate [Anterior Bilateral Throughout] Blood Pressure 119/69 119/69 138/83 O2 Sat by Pulse 100 100 100 Oximetry 07/28/20 07/28/20 07/28/20 00:30 00:48 01:00 Temperature Pulse Rate 111 H 110 H 92 H Pulse Rate [ Anterior Bilateral Throughout] Respiratory 19 16 Rate Respiratory Rate [Anterior Bilateral Throughout] Blood Pressure 138/83 138/73 140/79 O2 Sat by Pulse 100 100 100 Oximetry 07/28/20 07/28/20 07/28/20 01:30 01:58 02:00 Temperature Pulse Rate 87 87 Pulse Rate [ 94 H Anterior Bilateral Throughout] Respiratory 18 18 Rate Respiratory 20 Rate [Anterior Bilateral Throughout] Blood Pressure 138/73 113/64 O2 Sat by Pulse 95 97 Oximetry 07/28/20 07/28/20 07/28/20 02:30 03:00 03:23 Temperature 99.1 F Pulse Rate 86 85 Pulse Rate [ Anterior Bilateral Throughout] Respiratory 17 16 Rate Respiratory Rate [Anterior Bilateral Throughout] Blood Pressure 137/80 124/71 O2 Sat by Pulse 100 99 Oximetry 07/28/20 07/28/20 07/28/20 03:30 04:00 04:30 Temperature Pulse Rate 88 84 88 Pulse Rate [ Anterior Bilateral Throughout] Respiratory 16 16 16 Rate Respiratory Rate [Anterior Bilateral Throughout] Blood Pressure 127/72 125/78 125/73 O2 Sat by Pulse 100 100 100 Oximetry 07/28/20 07/28/20 07/28/20 05:00 05:30 06:00 Temperature Pulse Rate 89 108 H 108 H Pulse Rate [ Anterior Bilateral Throughout] Respiratory 16 13 17 Rate Respiratory Rate [Anterior Bilateral Throughout] Blood Pressure 123/68 136/94 136/94 O2 Sat by Pulse 100 100 100 Oximetry 07/28/20 07/28/20 07/28/20 06:30 07:00 07:30 Temperature Pulse Rate 87 85 104 H Pulse Rate [ Anterior Bilateral Throughout] Respiratory 14 15 17 Rate Respiratory Rate [Anterior Bilateral Throughout] Blood Pressure 124/66 125/62 124/66 O2 Sat by Pulse 100 100 99 Oximetry 07/28/20 07/28/20 07/28/20 08:00 08:30 09:00 Temperature Pulse Rate 93 H 93 H 93 H Pulse Rate [ Anterior Bilateral Throughout] Respiratory 17 18 16 Rate Respiratory Rate [Anterior Bilateral Throughout] Blood Pressure 122/65 121/71 111/51 O2 Sat by Pulse 95 97 98 Oximetry Constitutional: other (sedated) ENT: other (orally intubated) Neck: supple Effort: normal Ascultation: Bilateral: clear Gastrointestinal: normoactive bowel sounds Integumentary: normal CBC and BMP: 07/28/20 06:32 07/28/20 06:32 ABG, PT/INR, D-dimer: ABG ABG pH 7.406 pH Units (7.350-7.450) 07/27/20 Unknown ABG pCO2 34.0 mm Hg 07/27/20 Unknown ABG pO2 125.7 mm Hg (80.0-90.0) H 07/27/20 Unknown ABG O2 Saturation 98.5 % (95.0-99.0) 07/27/20 Unknown Abnormal lab findings: Abnormal Labs 07/26/20 07/26/20 07/27/20 23:44 23:44 10:41 WBC 18.3 H 12.2 H Hgb 11.3 L Hct MCV 80 L MCH 26 L 25 L MCHC 29 L RDW 20.7 H 20.3 H Lymph % (Auto) [place] % (Auto) Lymph # (Auto) [place] # (Auto) Seg Neutrophils % Lymphocytes % (Manual) 36.0 H Monocytes % (Manual) 8.0 H Seg Neutrophils # Seg Neutrophils # Man 9.5 H Lymphocytes # (Manual) 6.6 H Monocytes # (Manual) 1.5 H Eosinophils # (Manual) 0.5 H Basophils # (Manual) 0.2 H ABG pO2 ABG Base Excess ABG Hemoglobin Chloride 95.2 L Carbon Dioxide 10 L BUN 8 L Creatinine 1.9 H Glucose 255 H POC Glucose AST 58 H Total Creatine Kinase 1147 H 07/27/20 07/27/20 07/27/20 10:41 23:36 Unknown WBC Hgb Hct MCV MCH MCHC RDW Lymph % (Auto) [place] % (Auto) Lymph # (Auto) [place] # (Auto) Seg Neutrophils % Lymphocytes % (Manual) Monocytes % (Manual) Seg Neutrophils # Seg Neutrophils # Man Lymphocytes # (Manual) Monocytes # (Manual) Eosinophils # (Manual) Basophils # (Manual) ABG pO2 125.7 H ABG Base Excess -3.2 L ABG Hemoglobin 10.6 L Chloride Carbon Dioxide BUN 8 L Creatinine Glucose 110 H POC Glucose 107 H AST Total Creatine Kinase 07/28/20 07/28/20 07/28/20 05:18 06:32 06:32 WBC Hgb 11.1 L Hct 34.6 L MCV 81 L MCH 26 L MCHC RDW 20.3 H Lymph % (Auto) 8.9 L [place] % (Auto) 11.1 H Lymph # (Auto) 0.9 L [place] # (Auto) 1.1 H Seg Neutrophils % 78.6 H Lymphocytes % (Manual) Monocytes % (Manual) Seg Neutrophils # 7.9 H Seg Neutrophils # Man Lymphocytes # (Manual) Monocytes # (Manual) Eosinophils # (Manual) Basophils # (Manual) ABG pO2 ABG Base Excess ABG Hemoglobin Chloride Carbon Dioxide BUN 8 L Creatinine Glucose 106 H POC Glucose 120 H AST Total Creatine Kinase
[2020-07-28] MEDS: HALOPERIDOL LACTATE 5 MG/1 ML INJ IV PRN (11:39)
--- NOTE | 2020-07-28 15:43 | Progress Note ---
<JIANTERENCEJOSE HYoon - Last Filed: 07/29/20 07:19> Assessment and Plan Assessment and plan: This is a 24-year-old male with seizures and TBI was monitored for status epilepticus, acute respiratory failure, hyperglycemia, acute kidney injury and rhabdomyolysis Status epilepticus Acute hypoxic respiratory failure, extubated 07/28 Acute kidney injury, improving/resolved Rhabdomyolysis Leukocytosis (improved) Hypochloremia (resolved) Metabolic acidosis (resolved) UDS positive for marijuana COVID 19 PUI, ruled out Hyperglycemia Hx of TBI Hx of Seizures -CCM, neurology consulted, appreciate recommendations -Keppra 1000 mg x 1, fosphenytoin 1600 mgx1 in the emergency department -Keppra 1000 mg twice daily -Pulmonary hygiene -Haldol as needed -Seizure and aspiration precautions -Continue home lexapro -Hydralazine PRN -SSI, Accu-Cheks every 6 -07/26 CT head shows confluent regions of hypodensity and volume loss within the bilateral frontal lobes, findings may be secondary to previous trauma or ischemia, postsurgical changes from right convexity craniectomy, no evidence of mass-effect or midline shift, or acute intracranial hemorrhage -07/27 MRI Brain pending -07/28 EEG shows mildly abnormal be due to low voltage which is suggestive of encephalopathic process and/or postictal state and/or drug effect. No epileptif orm discharges -07/27 CXR shows some minor left basilar atelectasis DVT/GI prophylaxis: Heparin subcu, SCDs to bilateral lower extremities, PPI Disposition: Transfer to floor The high probability of a clinically significant, sudden or life threatening deterioration of the [multi] system(s) required my full and direct attention, intervention and personal management. The aggregate critical care time was [35] minutes. This time is in addition to time spent performing reported procedures but includes the following: [x] Data Review and interpretation [x] Patient assessment and monitoring of vital signs [x] Documentation [x] Medication orders and management History Interval history: This is a 24-year-old male with seizures and TBI presents the emergency department on 07/27 after being found down at home seizing by his mother and continued to seize until EMS arrival and patient was administered 2 mg of Ativan to report seizures. Patient was hypoxic at this time with shallow breathing and was bagged. On arrival to the emergency department patient was hypoxic to the low 90s with shallow respirations and bradypnea and was intubated for airway protection. Patient was sedated with Diprivan and taken to CT and while the patient continued to seize and required additional 4 mg of Ativan to abort. Patient was loaded with Keppra and received fosphenytoin for continued seizure activity. Lab work revealed leukocytosis, acute kidney injury, metabolic acidosis, hyperglycemia and rhabdomyolysis. Patient was admitted to the hospital service with status epilepticus, acute respiratory failure, acute kidney injury, hyperglycemia and rhabdomyolysis with consults to [facility] and his neurologist. 07/27: Neurology was consulted this morning, MRI brain pending, Ntr consult placed. KUB ordered to start TF. EEG completed and per neurology it is remar kable for diffuse slowing with no eplieptiform discharges noted. 07/28: At the time of examination patient sedated on propofol and on assist control with tidal volume 500, rate of 16, PEEP of 6 and 25% FiO2. Patient was extubated in the afternoon. Patient became aggressive and wanted to leave the hospital. Patient was given Haldol IV and started on as needed Haldol. Patient will be transferred to to the floor. RN to complete bedside swallow eval Hospitalist Physical - Constitutional Vitals: Temp Pulse Resp BP Pulse Ox 98.1 F 97 H 24 108/57 96 07/28/20 12:12 07/28/20 14:00 07/28/20 14:00 07/28/20 14:00 07/28/20 13:00 General appearance: Present: no acute distress, well-nourished, other (Traumatic cephalic) - EENT Eyes: Present: PERRL, EOM intact ENT: clear oral mucosa - Neck Neck: Present: normal ROM - Respiratory Respiratory effort: normal Respiratory: bilateral: CTA - Cardiovascular Rhythm: regular Heart Sounds: Present: S1 & S2. Absent: systolic murmur, diastolic murmur - Extremities Extremities: no ischemia, pulses intact, pulses symmetrical, No edema, normal temperature, normal color, Full ROM Peripheral Pulses: within normal limits - Abdominal General gastrointestinal: soft, non-tender, non-distended, normal bowel sounds - Integumentary Integumentary: Present: warm, dry - Psychiatric Psychiatric: agitated - Neurologic Neurologic: moves all extremities - Allied Health Allied health notes reviewed: nursing, RT, social work Results - Labs CBC & Chem 7: 07/28/20 06:32 07/28/20 06:32 Labs: Laboratory Last Values WBC 10.0 K/mm3 (4.5-11.0) 07/28/20 06:32 RBC 4.28 M/mm3 (3.65-5.03) 07/28/20 06:32 Hgb 11.1 gm/dl (11.8-15.2) L 07/28/20 06:32 Hct 34.6 % (35.5-45.6) L 07/28/20 06:32 MCV 81 fl (84-94) L 07/28/20 06:32 MCH 26 pg (28-32) L 07/28/20 06:32 MCHC 32 % (32-34) 07/28/20 06:32 RDW 20.3 % (13.2-15.2) H 07/28/20 06:32 Plt Count 179 K/mm3 (140-440) 07/28/20 06:32 Lymph % (Auto) 8.9 % (13.4-35.0) L 07/28/20 06:32 [place] % (Auto) 11.1 % (0.0-7.3) H 07/28/20 06:32 Eos % (Auto) 1.1 % (0.0-4.3) 07/28/20 06:32 Baso % (Auto) 0.3 % (0.0-1.8) 07/28/20 06:32 Lymph # (Auto) 0.9 K/mm3 (1.2-5.4) L 07/28/20 06:32 [place] # (Auto) 1.1 K/mm3 (0.0-0.8) H 07/28/20 06:32 Eos # (Auto) 0.1 K/mm3 (0.0-0.4) 07/28/20 06:32 Baso # (Auto) 0.0 K/mm3 (0.0-0.1) 07/28/20 06:32 Add Manual Diff Complete 07/26/20 23:44 Total Counted 100 07/26/20 23:44 Seg Neutrophils % 78.6 % (40.0-70.0) H 07/28/20 06:32 Seg Neuts % (Manual) 52.0 % (40.0-70.0) 07/26/20 23:44 Lymphocytes % (Manual) 36.0 % (13.4-35.0) H 07/26/20 23:44 Monocytes % (Manual) 8.0 % (0.0-7.3) H 07/26/20 23:44 Eosinophils % (Manual) 3.0 % (0.0-4.3) 07/26/20 23:44 Basophils % (Manual) 1.0 % (0.0-1.8) 07/26/20 23:44 Nucleated RBC % Not Reportable 07/26/20 23:44 Seg Neutrophils # 7.9 K/mm3 (1.8-7.7) H 07/28/20 06:32 Seg Neutrophils # Man 9.5 K/mm3 (1.8-7.7) H 07/26/20 23:44 Band Neutrophils # 0.0 K/mm3 07/26/20 23:44 Lymphocytes # (Manual) 6.6 K/mm3 (1.2-5.4) H 07/26/20 23:44 Abs React Lymphs (Man) 0.0 K/mm3 07/26/20 23:44 Monocytes # (Manual) 1.5 K/mm3 (0.0-0.8) H 07/26/20 23:44 Eosinophils # (Manual) 0.5 K/mm3 (0.0-0.4) H 07/26/20 23:44 Basophils # (Manual) 0.2 K/mm3 (0.0-0.1) H 07/26/20 23:44 Metamyelocytes # 0.0 K/mm3 07/26/20 23:44 Myelocytes # 0.0 K/mm3 07/26/20 23:44 Promyelocytes # 0.0 K/mm3 07/26/20 23:44 Blast Cells # 0.0 K/mm3 07/26/20 23:44 WBC Morphology Not Reportable 07/26/20 23:44 Hypersegmented Neuts Not Reportable 07/26/20 23:44 Hyposegmented Neuts Not Reportable 07/26/20 23:44 Hypogranular Neuts Not Reportable 07/26/20 23:44 Smudge Cells Not Reportable 07/26/20 23:44 Toxic Granulation Not Reportable 07/26/20 23:44 Toxic Vacuolation Not Reportable 07/26/20 23:44 Dohle Bodies Not Reportable 07/26/20 23:44 Pelger-Huet Anomaly Not Reportable 07/26/20 23:44 Sherlyn Rods Not Reportable 07/26/20 23:44 Platelet Estimate Not Reportable 07/26/20 23:44 Clumped Platelets Not Reportable 07/26/20 23:44 Plt Clumps, EDTA Not Reportable 07/26/20 23:44 Large Platelets Not Reportable 07/26/20 23:44 Giant Platelets Not Reportable 07/26/20 23:44 Platelet Satelliting Not Reportable 07/26/20 23:44 Plt Morphology Comment Not Reportable 07/26/20 23:44 RBC Morphology Not Reportable 07/26/20 23:44 Dimorphic RBCs Not Reportable 07/26/20 23:44 Polychromasia Not Reportable 07/26/20 23:44 Hypochromasia 1+ 07/26/20 23:44 Poikilocytosis Not Reportable 07/26/20 23:44 Anisocytosis 1+ 07/26/20 23:44 Microcytosis Few 07/26/20 23:44 Macrocytosis Not Reportable 07/26/20 23:44 Spherocytes Not Reportable 07/26/20 23:44 Pappenheimer Bodies Not Reportable 07/26/20 23:44 Sickle Cells Not Reportable 07/26/20 23:44 Target Cells Not Reportable 07/26/20 23:44 Tear Drop Cells Not Reportable 07/26/20 23:44 Ovalocytes Not Reportable 07/26/20 23:44 Helmet Cells Not Reportable 07/26/20 23:44 [place] Bodies Not Reportable 07/26/20 23:44 [place] Rings Not Reportable 07/26/20 23:44 Kyree Cells Not Reportable 07/26/20 23:44 Bite Cells Not Reportable 07/26/20 23:44 Crenated Cell Not Reportable 07/26/20 23:44 Elliptocytes Not Reportable 07/26/20 23:44 Acanthocytes (Spur) Not Reportable 07/26/20 23:44 Rouleaux Not Reportable 07/26/20 23:44 Hemoglobin C Crystals Not Reportable 07/26/20 23:44 Schistocytes Not Reportable 07/26/20 23:44 Malaria parasites Not Reportable 07/26/20 23:44 Edin Bodies Not Reportable 07/26/20 23:44 Hem Pathologist Commnt No 07/26/20 23:44 ABG pH 7.406 pH Units (7.350-7.450) 07/27/20 Unknown ABG pCO2 34.0 mm Hg 07/27/20 Unknown ABG pO2 125.7 mm Hg (80.0-90.0) H 07/27/20 Unknown ABG HCO3 20.9 mmol/L (20.0-26.0) 07/27/20 Unknown ABG O2 Saturation 98.5 % (95.0-99.0) 07/27/20 Unknown ABG O2 Content 14.5 (0.0-44) 07/27/20 Unknown ABG Base Excess -3.2 mmol/L (-2.0-3.0) L 07/27/20 Unknown ABG Hemoglobin 10.6 gm/dl (14.0-18.0) L 07/27/20 Unknown ABG Carboxyhemoglobin 1.7 % (0.0-5.0) 07/27/20 Unknown ABG Methemoglobin 0.5 % (0.0-1.5) 07/27/20 Unknown Oxyhemoglobin 96.3 % (95.0-99.0) 07/27/20 Unknown FiO2 21 % 07/27/20 Unknown Sodium 142 mmol/L (137-145) 07/28/20 06:32 Potassium 4.0 mmol/L (3.6-5.0) 07/28/20 06:32 Chloride 105.9 mmol/L (98-107) 07/28/20 06:32 Carbon Dioxide 25 mmol/L (22-30) 07/28/20 06:32 Anion Gap 15 mmol/L 07/28/20 06:32 BUN 8 mg/dL (9-20) L 07/28/20 06:32 Creatinine 1.0 mg/dL (0.8-1.3) 07/28/20 06:32 Estimated GFR > 60 ml/min 07/28/20 06:32 BUN/Creatinine Ratio 8 % 07/28/20 06:32 Glucose 106 mg/dL (75-100) H 07/28/20 06:32 POC Glucose 120 mg/dL (70-105) H 07/28/20 05:18 Calcium 9.1 mg/dL (8.4-10.2) 07/28/20 06:32 Total Bilirubin 0.40 mg/dL (0.1-1.2) 07/26/20 23:44 AST 58 units/L (5-40) H 07/26/20 23:44 ALT 23 units/L (7-56) 07/26/20 23:44 Alkaline Phosphatase 78 units/L (35-129) 07/26/20 23:44 Total Creatine Kinase 1147 units/L (55-170) H 07/26/20 23:44 Total Protein 7.8 g/dL (6.3-8.2) 07/26/20 23:44 Albumin 4.8 g/dL (3.9-5) 07/26/20 23:44 Albumin/Globulin Ratio 1.6 % 07/26/20 23:44 TSH 3.550 mlU/mL (0.270-4.200) 07/26/20 23:44 Urine Color Straw (Yellow) 07/27/20 Unknown Urine Turbidity Slightly-cloudy (Clear) 07/27/20 Unknown Urine pH 6.0 (5.0-7.0) 07/27/20 Unknown Ur Specific Walker 1.006 (1.003-1.030) 07/27/20 Unknown Urine Protein <15 mg/dl mg/dL (Negative) 07/27/20 Unknown Urine Glucose (UA) Neg mg/dL (Negative) 07/27/20 Unknown Urine Ketones Neg mg/dL (Negative) 07/27/20 Unknown Urine Blood Mod (Negative) 07/27/20 Unknown Urine Nitrite Neg (Negative) 07/27/20 Unknown Urine Bilirubin Neg (Negative) 07/27/20 Unknown Urine Urobilinogen < 2.0 mg/dL (<2.0) 07/27/20 Unknown Ur Leukocyte Esterase Neg (Negative) 07/27/20 Unknown Urine WBC (Auto) 2.0 /HPF (0.0-6.0) 07/27/20 Unknown Urine RBC (Auto) 4.0 /HPF (0.0-6.0) 07/27/20 Unknown Urine Bacteria (Auto) 1+ /HPF (Negative) 07/27/20 Unknown Triple Phos Crystals Few 07/27/20 Unknown Urine Mucus Few /HPF 07/27/20 Unknown Urine Opiates Screen Negative 07/27/20 Unknown Urine Methadone Screen Negative 07/27/20 Unknown Ur Barbiturates Screen Negative 07/27/20 Unknown Ur Phencyclidine Scrn Negative 07/27/20 Unknown Ur Amphetamines Screen Negative 07/27/20 Unknown U Benzodiazepines Scrn Negative 07/27/20 Unknown Urine Cocaine Screen Negative 07/27/20 Unknown U Marijuana (THC) Screen Presumptive positive 07/27/20 Unknown Drugs of Abuse Note Disclamer 07/27/20 Unknown Plasma/Serum Alcohol < 0.01 % (0-0.07) 07/26/20 23:44 Coronavirus (PCR) Negative (Negative) 07/27/20 Unknown Morales/IV: Voiding Method Indwelling Catheter Active Medications - Current Medications Current Medications: Generic Name Dose Route Start Last Admin Trade Name Freq PRN Reason Stop Dose Admin Acetaminophen 650 mg 07/27/20 05:37 Acetaminophen 325 Mg Tab PO Q4H PRN Pain MILD(1-3)/Fever >100.5/DONG Albuterol 2.5 mg 07/27/20 05:37 Albuterol 2.5 Mg/3 Ml Nebu IH Q4HRT PRN Shortness Of Breath Albuterol/Ipratropium 1 ampul 07/27/20 08:00 07/28/20 08:50 Ipratropium/Albuterol Sulfate 3 Ml Ampul.Neb IH 1 ampul Q6HRT ALTA Administration Lipase/Protease/Amylase 1 each 07/27/20 12:05 Lipase 10,500/Protease 25,000/Amylase 43,750 (Units) Dr Lange FEEDTUBE PRN PRN For Clogged Feeding Tube Dextrose 50 ml 07/27/20 08:09 Dextrose 50% In Water (25gm) 50 Ml Syringe IV Q30MIN PRN Hypoglycemia Protocol Famotidine 20 mg 07/28/20 10:00 07/28/20 11:01 Famotidine 20 Mg Tab PO 20 mg BID ALTA Administration Haloperidol Lactate 5 mg 07/28/20 11:19 07/28/20 11:39 Haloperidol Lactate 5 Mg/1 Ml Inj IV 5 mg Q6H PRN Administration Agitation Heparin Sodium (Porcine) 5,000 unit 07/27/20 06:00 07/28/20 14:13 Heparin 5,000 Unit/1 Ml Vial SUB-Q 5,000 unit Q8HR ALTA Administration Hydralazine HCl 10 mg 07/27/20 05:40 Hydralazine 20 Mg/1 Ml Inj IV Q6H PRN htn Hydrophilic Ointment 1 applic 07/26/20 23:35 Lip Therapy Vaseline TP Q2HR PRN Dry Lips Levetiracetam 1,000 mg/ 110 mls @ 400 mls/hr 07/27/20 15:00 07/28/20 11:01 Dextrose IV 400 mls/hr Q12HR ALTA Administration Insulin Human Regular 0 units 07/27/20 09:00 07/28/20 13:36 Insulin Regular, Human 100 Units/1 Ml SUB-Q Not Given Q6HR [facility] Protocol Lorazepam 2 mg 07/27/20 07:51 07/28/20 06:14 Lorazepam 2 Mg/Ml Vial IV 2 mg Q4H PRN Administration AGITATION Miscellaneous Medication 5 mg 07/29/20 10:00 Lexapro PO DAILY [facility] Multi-Ingred Cream/Lotion/Oil/Oint 1 applic 07/26/20 23:35 Mineral Oil/Petrolatum, White Ophth Oint 3.5 Gm OU Q4HR PRN Dry Eye(s) Ondansetron HCl 4 mg 07/27/20 05:37 Ondansetron 4 Mg/2 Ml Inj IV Q8H PRN Nausea And Vomiting Simple Syrup 15 ml 07/27/20 12:05 Simple Syrup 15 Ml FEEDTUBE PRN PRN Hypoglycemia Simple Syrup 30 ml 07/27/20 12:05 Simple Syrup 15 Ml FEEDTUBE PRN PRN Hypoglycemia Sodium Bicarbonate 325 mg 07/27/20 12:05 Sodium Bicarbonate 325 Mg Tab FEEDTUBE PRN PRN For Clogged Feeding Tube Sodium Chloride 10 ml 07/27/20 10:00 07/28/20 11:02 Sodium Chloride 0.9% 10 Ml Flush Syringe IV 10 ml BID ALTA Administration Sodium Chloride 10 ml 07/27/20 05:37 Sodium Chloride 0.9% 10 Ml Flush Syringe IV PRN PRN LINE FLUSH Nutrition/Malnutrition Assess - Dietary Evaluation Nutrition/Malnutrition Findings: Nutrition Notes Start: 07/27/20 07:32 Freq: Status: Active Protocol: Document 07/27/20 07:32 MK (Rec: 07/27/20 07:37 [email or web address]) Nutrition Notes Need for Assessment generated from: MD Order Initial or Follow up Assessment Current Diagnosis Respiratory Failure Other Pertinent Diagnosis seizure disorder, hx TBI Current Diet NPO Labs/Tests BUN 8 Cr 1.9 BG 255 AST 58 Pertinent Medications Propofol at 14.76 ml/hr NS at 125 ml/hr Height 5 ft 10 in Weight 82 kg [place] Body Weight (kg) 75.45 BMI 25.9 Weight Status Appropriate Subjective/Other Information MD order to evaluate nutritional intake and for TPN . Pt on vent and on hold in ED . Per MD Wick, TPN consult an error; pt likely extubated tomorrow, however, can start TF. Burn Absent Trauma Absent Current % PO Negligible Minimum of two criteria No physical signs of malnutrition #1 Nutrition Diagnosis Inadequate oral intake Etiology ARF As Evidenced by Signs and Symptoms Pt on vent and unable to consume PO Is patient on ventilator? Yes Is Patient Ambulatory and/or Out of Bed No REE-([facility]-confined to bed) [phone] Calculation Used for Recommendations [facility] Additional Notes Protein: (1.2-2g/kg) 98-164g Fluid: 1 ml/kcal Nutrition Intervention Change Diet Order: Start TF when able Nutrition Support: Osmolite 1.5 at 60ml/hr Flush 175 ml q4h Kcal 2,160 Protein (gm) 90 Carbohydrates (gm) 293 Fat (gm) 71 Fluid (mL) 1,097 Goal #1 Start TF or extubation Anticipated Discharge Needs: Unable to determine at this time Follow-Up By: 07/29/20 Additional Comments FU for TF start/tolerance or extubation and BG, renal labs <ANAHI ROJO - Last Filed: 07/29/20 10:51> Assessment and Plan Assessment and plan: Agree with assessment and plan as outlined by nurse practitioner's note as above. I have seen and examined the patient myself. Patient very lethargic after extubation. Patient is arousable. Mother at the bedside, spoke with the mother pertaining to the patient's history. Patient never discharged from the hospital with seizure medication. Patient's mother states he has been having seizures even in his sleep. Currently on Keppra, will continue, MRI is pending. Neurology following. Patient is stable to be transferred to the floor. Hospitalist Physical - Constitutional Vitals: Temp Pulse Resp BP Pulse Ox 97.3 F L 81 18 108/62 99 07/29/20 08:04 07/29/20 08:04 07/29/20 08:04 07/29/20 08:04 07/29/20 08:04 Results - Labs CBC & Chem 7: 07/28/20 06:32 07/28/20 06:32 Labs: Laboratory Last Values WBC 10.0 K/mm3 (4.5-11.0) 07/28/20 06:32 RBC 4.28 M/mm3 (3.65-5.03) 07/28/20 06:32 Hgb 11.1 gm/dl (11.8-15.2) L 07/28/20 06:32 Hct 34.6 % (35.5-45.6) L 07/28/20 06:32 MCV 81 fl (84-94) L 07/28/20 06:32 MCH 26 pg (28-32) L 07/28/20 06:32 MCHC 32 % (32-34) 07/28/20 06:32 RDW 20.3 % (13.2-15.2) H 07/28/20 06:32 Plt Count 179 K/mm3 (140-440) 07/28/20 06:32 Lymph % (Auto) 8.9 % (13.4-35.0) L 07/28/20 06:32 [place] % (Auto) 11.1 % (0.0-7.3) H 07/28/20 06:32 Eos % (Auto) 1.1 % (0.0-4.3) 07/28/20 06:32 Baso % (Auto) 0.3 % (0.0-1.8) 07/28/20 06:32 Lymph # (Auto) 0.9 K/mm3 (1.2-5.4) L 07/28/20 06:32 [place] # (Auto) 1.1 K/mm3 (0.0-0.8) H 07/28/20 06:32 Eos # (Auto) 0.1 K/mm3 (0.0-0.4) 07/28/20 06:32 Baso # (Auto) 0.0 K/mm3 (0.0-0.1) 07/28/20 06:32 Add Manual Diff Complete 07/26/20 23:44 Total Counted 100 07/26/20 23:44 Seg Neutrophils % 78.6 % (40.0-70.0) H 07/28/20 06:32 Seg Neuts % (Manual) 52.0 % (40.0-70.0) 07/26/20 23:44 Lymphocytes % (Manual) 36.0 % (13.4-35.0) H 07/26/20 23:44 Monocytes % (Manual) 8.0 % (0.0-7.3) H 07/26/20 23:44 Eosinophils % (Manual) 3.0 % (0.0-4.3) 07/26/20 23:44 Basophils % (Manual) 1.0 % (0.0-1.8) 07/26/20 23:44 Nucleated RBC % Not Reportable 07/26/20 23:44 Seg Neutrophils # 7.9 K/mm3 (1.8-7.7) H 07/28/20 06:32 Seg Neutrophils # Man 9.5 K/mm3 (1.8-7.7) H 07/26/20 23:44 Band Neutrophils # 0.0 K/mm3 07/26/20 23:44 Lymphocytes # (Manual) 6.6 K/mm3 (1.2-5.4) H 07/26/20 23:44 Abs React Lymphs (Man) 0.0 K/mm3 07/26/20 23:44 Monocytes # (Manual) 1.5 K/mm3 (0.0-0.8) H 07/26/20 23:44 Eosinophils # (Manual) 0.5 K/mm3 (0.0-0.4) H 07/26/20 23:44 Basophils # (Manual) 0.2 K/mm3 (0.0-0.1) H 07/26/20 23:44 Metamyelocytes # 0.0 K/mm3 07/26/20 23:44 Myelocytes # 0.0 K/mm3 07/26/20 23:44 Promyelocytes # 0.0 K/mm3 07/26/20 23:44 Blast Cells # 0.0 K/mm3 07/26/20 23:44 WBC Morphology Not Reportable 07/26/20 23:44 Hypersegmented Neuts Not Reportable 07/26/20 23:44 Hyposegmented Neuts Not Reportable 07/26/20 23:44 Hypogranular Neuts Not Reportable 07/26/20 23:44 Smudge Cells Not Reportable 07/26/20 23:44 Toxic Granulation Not Reportable 07/26/20 23:44 Toxic Vacuolation Not Reportable 07/26/20 23:44 Dohle Bodies Not Reportable 07/26/20 23:44 Pelger-Huet Anomaly Not Reportable 07/26/20 23:44 Sherlyn Rods Not Reportable 07/26/20 23:44 Platelet Estimate Not Reportable 07/26/20 23:44 Clumped Platelets Not Reportable 07/26/20 23:44 Plt Clumps, EDTA Not Reportable 07/26/20 23:44 Large Platelets Not Reportable 07/26/20 23:44 Giant Platelets Not Reportable 07/26/20 23:44 Platelet Satelliting Not Reportable 07/26/20 23:44 Plt Morphology Comment Not Reportable 07/26/20 23:44 RBC Morphology Not Reportable 07/26/20 23:44 Dimorphic RBCs Not Reportable 07/26/20 23:44 Polychromasia Not Reportable 07/26/20 23:44 Hypochromasia 1+ 07/26/20 23:44 Poikilocytosis Not Reportable 07/26/20 23:44 Anisocytosis 1+ 07/26/20 23:44 Microcytosis Few 07/26/20 23:44 Macrocytosis Not Reportable 07/26/20 23:44 Spherocytes Not Reportable 07/26/20 23:44 Pappenheimer Bodies Not Reportable 07/26/20 23:44 Sickle Cells Not Reportable 07/26/20 23:44 Target Cells Not Reportable 07/26/20 23:44 Tear Drop Cells Not Reportable 07/26/20 23:44 Ovalocytes Not Reportable 07/26/20 23:44 Helmet Cells Not Reportable 07/26/20 23:44 [place] Bodies Not Reportable 07/26/20 23:44 [place] Rings Not Reportable 07/26/20 23:44 Kyree Cells Not Reportable 07/26/20 23:44 Bite Cells Not Reportable 07/26/20 23:44 Crenated Cell Not Reportable 07/26/20 23:44 Elliptocytes Not Reportable 07/26/20 23:44 Acanthocytes (Spur) Not Reportable 07/26/20 23:44 Rouleaux Not Reportable 07/26/20 23:44 Hemoglobin C Crystals Not Reportable 07/26/20 23:44 Schistocytes Not Reportable 07/26/20 23:44 Malaria parasites Not Reportable 07/26/20 23:44 Edin Bodies Not Reportable 07/26/20 23:44 Hem Pathologist Commnt No 07/26/20 23:44 ABG pH 7.406 pH Units (7.350-7.450) 07/27/20 Unknown ABG pCO2 34.0 mm Hg 07/27/20 Unknown ABG pO2 125.7 mm Hg (80.0-90.0) H 07/27/20 Unknown ABG HCO3 20.9 mmol/L (20.0-26.0) 07/27/20 Unknown ABG O2 Saturation 98.5 % (95.0-99.0) 07/27/20 Unknown ABG O2 Content 14.5 (0.0-44) 07/27/20 Unknown ABG Base Excess -3.2 mmol/L (-2.0-3.0) L 07/27/20 Unknown ABG Hemoglobin 10.6 gm/dl (14.0-18.0) L 07/27/20 Unknown ABG Carboxyhemoglobin 1.7 % (0.0-5.0) 07/27/20 Unknown ABG Methemoglobin 0.5 % (0.0-1.5) 07/27/20 Unknown Oxyhemoglobin 96.3 % (95.0-99.0) 07/27/20 Unknown FiO2 21 % 07/27/20 Unknown Sodium 142 mmol/L (137-145) 07/28/20 06:32 Potassium 4.0 mmol/L (3.6-5.0) 07/28/20 06:32 Chloride 105.9 mmol/L (98-107) 07/28/20 06:32 Carbon Dioxide 25 mmol/L (22-30) 07/28/20 06:32 Anion Gap 15 mmol/L 07/28/20 06:32 BUN 8 mg/dL (9-20) L 07/28/20 06:32 Creatinine 1.0 mg/dL (0.8-1.3) 07/28/20 06:32 Estimated GFR > 60 ml/min 07/28/20 06:32 BUN/Creatinine Ratio 8 % 07/28/20 06:32 Glucose 106 mg/dL (75-100) H 07/28/20 06:32 POC Glucose 83 mg/dL (70-105) 07/29/20 05:55 Calcium 9.1 mg/dL (8.4-10.2) 07/28/20 06:32 Total Bilirubin 0.40 mg/dL (0.1-1.2) 07/26/20 23:44 AST 58 units/L (5-40) H 07/26/20 23:44 ALT 23 units/L (7-56) 07/26/20 23:44 Alkaline Phosphatase 78 units/L (35-129) 07/26/20 23:44 Total Creatine Kinase 1147 units/L (55-170) H 07/26/20 23:44 Total Protein 7.8 g/dL (6.3-8.2) 07/26/20 23:44 Albumin 4.8 g/dL (3.9-5) 07/26/20 23:44 Albumin/Globulin Ratio 1.6 % 07/26/20 23:44 TSH 3.550 mlU/mL (0.270-4.200) 07/26/20 23:44 Urine Color Straw (Yellow) 07/27/20 Unknown Urine Turbidity Slightly-cloudy (Clear) 07/27/20 Unknown Urine pH 6.0 (5.0-7.0) 07/27/20 Unknown Ur Specific Walker 1.006 (1.003-1.030) 07/27/20 Unknown Urine Protein <15 mg/dl mg/dL (Negative) 07/27/20 Unknown Urine Glucose (UA) Neg mg/dL (Negative) 07/27/20 Unknown Urine Ketones Neg mg/dL (Negative) 07/27/20 Unknown Urine Blood Mod (Negative) 07/27/20 Unknown Urine Nitrite Neg (Negative) 07/27/20 Unknown Urine Bilirubin Neg (Negative) 07/27/20 Unknown Urine Urobilinogen < 2.0 mg/dL (<2.0) 07/27/20 Unknown Ur Leukocyte Esterase Neg (Negative) 07/27/20 Unknown Urine WBC (Auto) 2.0 /HPF (0.0-6.0) 07/27/20 Unknown Urine RBC (Auto) 4.0 /HPF (0.0-6.0) 07/27/20 Unknown Urine Bacteria (Auto) 1+ /HPF (Negative) 07/27/20 Unknown Triple Phos Crystals Few 07/27/20 Unknown Urine Mucus Few /HPF 07/27/20 Unknown Urine Opiates Screen Negative 07/27/20 Unknown Urine Methadone Screen Negative 07/27/20 Unknown Ur Barbiturates Screen Negative 07/27/20 Unknown Ur Phencyclidine Scrn Negative 07/27/20 Unknown Ur Amphetamines Screen Negative 07/27/20 Unknown U Benzodiazepines Scrn Negative 07/27/20 Unknown Urine Cocaine Screen Negative 07/27/20 Unknown U Marijuana (THC) Screen Presumptive positive 07/27/20 Unknown Drugs of Abuse Note Disclamer 07/27/20 Unknown Plasma/Serum Alcohol < 0.01 % (0-0.07) 07/26/20 23:44 Coronavirus (PCR) Negative (Negative) 07/27/20 Unknown Morales/IV: Voiding Method Incontinent Active Medications - Current Medications Current Medications: Generic Name Dose Route Start Last Admin Trade Name Freq PRN Reason Stop Dose Admin Acetaminophen 650 mg 07/27/20 05:37 Acetaminophen 325 Mg Tab PO Q4H PRN Pain MILD(1-3)/Fever >100.5/DONG Albuterol 2.5 mg 07/27/20 05:37 Albuterol 2.5 Mg/3 Ml Nebu IH Q4HRT PRN Shortness Of Breath Dextrose 50 ml 07/27/20 08:09 Dextrose 50% In Water (25gm) 50 Ml Syringe IV Q30MIN PRN Hypoglycemia Protocol Escitalopram Oxalate 5 mg 07/29/20 10:00 07/29/20 09:31 Escitalopram 10 Mg Tab PO 5 mg DAILY ALTA Administration Famotidine 20 mg 07/28/20 10:00 07/29/20 09:31 Famotidine 20 Mg Tab PO 20 mg BID ALTA Administration Haloperidol Lactate 5 mg 07/28/20 11:19 07/29/20 09:39 Haloperidol Lactate 5 Mg/1 Ml Inj IV 5 mg Q6H PRN Administration Agitation Heparin Sodium (Porcine) 5,000 unit 07/27/20 06:00 07/29/20 06:10 Heparin 5,000 Unit/1 Ml Vial SUB-Q 5,000 unit Q8HR ALTA Administration Hydralazine HCl 10 mg 07/27/20 05:40 Hydralazine 20 Mg/1 Ml Inj IV Q6H PRN htn Hydrophilic Ointment 1 applic 07/26/20 23:35 Lip Therapy Vaseline TP Q2HR PRN Dry Lips Levetiracetam 1,000 mg/ 110 mls @ 400 mls/hr 07/27/20 15:00 07/29/20 10:05 Dextrose IV 400 mls/hr Q12HR ALTA Administration Insulin Human Regular 0 units 07/27/20 09:00 07/29/20 06:08 Insulin Regular, Human 100 Units/1 Ml SUB-Q Not Given Q6HR [facility] Protocol Lorazepam 2 mg 07/27/20 07:51 07/28/20 23:49 Lorazepam 2 Mg/Ml Vial IV 2 mg Q4H PRN Administration AGITATION Multi-Ingred Cream/Lotion/Oil/Oint 1 applic 07/26/20 23:35 Mineral Oil/Petrolatum, White Ophth Oint 3.5 Gm OU Q4HR PRN Dry Eye(s) Ondansetron HCl 4 mg 07/27/20 05:37 Ondansetron 4 Mg/2 Ml Inj IV Q8H PRN Nausea And Vomiting Sodium Chloride 10 ml 07/27/20 10:00 07/29/20 09:32 Sodium Chloride 0.9% 10 Ml Flush Syringe IV 10 ml BID ALTA Administration Sodium Chloride 10 ml 07/27/20 05:37 Sodium Chloride 0.9% 10 Ml Flush Syringe IV PRN PRN LINE FLUSH Nutrition/Malnutrition Assess - Dietary Evaluation Nutrition/Malnutrition Findings: Nutrition Notes Start: 07/27/20 07:32 Freq: Status: Active Protocol: Document 07/27/20 07:32 (Rec: 07/27/20 07:37 [id number]) Nutrition Notes Need for Assessment generated from: MD Order Initial or Follow up Assessment Current Diagnosis Respiratory Failure Other Pertinent Diagnosis seizure disorder, hx TBI Current Diet NPO Labs/Tests BUN 8 Cr 1.9 BG 255 AST 58 Pertinent Medications Propofol at 14.76 ml/hr NS at 125 ml/hr Height 5 ft 10 in Weight 82 kg [place] Body Weight (kg) 75.45 BMI 25.9 Weight Status Appropriate Subjective/Other Information MD order to evaluate nutritional intake and for TPN . Pt on vent and on hold in ED . Per MD Wick, TPN consult an error; pt likely extubated tomorrow, however, can start TF. Burn Absent Trauma Absent Current % PO Negligible Minimum of two criteria No physical signs of malnutrition #1 Nutrition Diagnosis Inadequate oral intake Etiology ARF As Evidenced by Signs and Symptoms Pt on vent and unable to consume PO Is patient on ventilator? Yes Is Patient Ambulatory and/or Out of Bed No REE-([facility]-confined to bed) 7431.373 Calculation Used for Recommendations [facility] Additional Notes Protein: (1.2-2g/kg) 98-164g Fluid: 1 ml/kcal Nutrition Intervention Change Diet Order: Start TF when able Nutrition Support: Osmolite 1.5 at 60ml/hr Flush 175 ml q4h Kcal 2,160 Protein (gm) 90 Carbohydrates (gm) 293 Fat (gm) 71 Fluid (mL) 1,097 Goal #1 Start TF or extubation Anticipated Discharge Needs: Unable to determine at this time Follow-Up By: 07/29/20 Additional Comments FU for TF start/tolerance or extubation and BG, renal labs
[2020-07-29] MEDS: INSULIN REGULAR, HUMAN 100 UNITS/1 ML SUB-Q SCH ×4 (00:28→17:01)
[2020-07-29] MEDS: HEPARIN 5,000 UNIT/1 ML VIAL SUB-Q SCH ×3 (06:10→22:04)
--- NOTE | 2020-07-29 08:48 | XRay Report ---
CHEST 1 VIEW INDICATION: follow up respiratory failure. COMPARISON: Yesterday FINDINGS: Support devices: None. Endotracheal tube and nasogastric tube have been removed. Heart: Within normal limits. Lungs/Pleura: No acute air space or interstitial disease. Additional findings: None. IMPRESSION: No acute findings. Signer Name: Krishna Aceves Jr, MD Signed: 07/29/2020 8:44 AM Workstation Name: [id number]
[2020-07-29] MEDS: FAMOTIDINE 20 MG TAB PO SCH ×2 (09:31→22:03)
[2020-07-29] MEDS: ESCITALOPRAM 10 MG TAB PO SCH (09:31)
[2020-07-29] MEDS: HALOPERIDOL LACTATE 5 MG/1 ML INJ IV PRN ×3 (09:39→22:03)
[2020-07-29] MEDS ORDERED: LEXAPRO PO SCH (10:00)
[2020-07-29] MEDS: levETIRAcetam 1,000 MG in DEXTROSE 5% IN WATER 100 ML IV SCH ×2 (10:05→22:02)
--- NOTE | 2020-07-29 10:56 | Progress Note ---
Assessment and Plan Assessment and plan: This is a 24-year-old male with seizures and TBI was monitored for status epilepticus, acute respiratory failure, hyperglycemia, acute kidney injury and rhabdomyolysis Status epilepticus Acute hypoxic respiratory failure, extubated 07/28 Acute kidney injury, improving/resolved Rhabdomyolysis Leukocytosis (improved) Hypochloremia (resolved) Metabolic acidosis (resolved) UDS positive for marijuana COVID 19 PUI, ruled out Hyperglycemia Hx of TBI Hx of Seizures -CCM, neurology consulted, appreciate recommendations -Keppra 1000 mg x 1, fosphenytoin 1600 mgx1 in the emergency department -Keppra 1000 mg twice daily -Pulmonary hygiene -Haldol as needed -Seizure and aspiration precautions -Continue home lexapro -Hydralazine PRN -SSI, Accu-Cheks every 6 -07/26 CT head shows confluent regions of hypodensity and volume loss within the bilateral frontal lobes, findings may be secondary to previous trauma or ischemia, postsurgical changes from right convexity craniectomy, no evidence of mass-effect or midline shift, or acute intracranial hemorrhage -07/27 MRI Brain pending -07/28 EEG shows mildly abnormal be due to low voltage which is suggestive of encephalopathic process and/or postictal state and/or drug effect. No epileptiform discharges -07/27 CXR shows some minor left basilar atelectasis DVT/GI prophylaxis: Heparin subcu, SCDs to bilateral lower extremities, PPI Disposition: Continue treatment for acute seizures, MRI of brain pending History Interval history: 07/29/2020: Patient seen and examined, more arousable this morning, no agitation. Sleeping in bed, denies any pain or headaches. MRI pending. Hospitalist Physical - Physical exam Narrative exam: General appearance: no acute distress, well-nourished Head: Surgical scar on the right cranium, no signs of trauma EENT: PERRL, EOM intact, hearing intact, clear oral mucosa Respiratory: bilateral CTA, negative: rales, rhonchi, wheezing Cardiovascular: Regular rate/rhythm, Normal S1 & S2. No gallop, rub Extremities: no ischemia, No edema, normal temperature, normal color, Full ROM Abdominal: soft, no tenderness, non-distended, normal bowel sounds Integumentary: Present: clear, warm, dry no wounds, no erythema noted Neurologic: CNII-XII intact, moves all extremities, no sensory or motor abnormalities - Constitutional Vitals: Temp Pulse Resp BP Pulse Ox 97.3 F L 81 18 108/62 99 07/29/20 08:04 07/29/20 08:04 07/29/20 08:04 07/29/20 08:04 07/29/20 08:04 General appearance: Present: other (Traumatic cephalic) Results - Labs CBC & Chem 7: 07/28/20 06:32 07/28/20 06:32 Labs: Laboratory Last Values WBC 10.0 K/mm3 (4.5-11.0) 07/28/20 06:32 RBC 4.28 M/mm3 (3.65-5.03) 07/28/20 06:32 Hgb 11.1 gm/dl (11.8-15.2) L 07/28/20 06:32 Hct 34.6 % (35.5-45.6) L 07/28/20 06:32 MCV 81 fl (84-94) L 07/28/20 06:32 MCH 26 pg (28-32) L 07/28/20 06:32 MCHC 32 % (32-34) 07/28/20 06:32 RDW 20.3 % (13.2-15.2) H 07/28/20 06:32 Plt Count 179 K/mm3 (140-440) 07/28/20 06:32 Lymph % (Auto) 8.9 % (13.4-35.0) L 07/28/20 06:32 [place] % (Auto) 11.1 % (0.0-7.3) H 07/28/20 06:32 Eos % (Auto) 1.1 % (0.0-4.3) 07/28/20 06:32 Baso % (Auto) 0.3 % (0.0-1.8) 07/28/20 06:32 Lymph # (Auto) 0.9 K/mm3 (1.2-5.4) L 07/28/20 06:32 [place] # (Auto) 1.1 K/mm3 (0.0-0.8) H 07/28/20 06:32 Eos # (Auto) 0.1 K/mm3 (0.0-0.4) 07/28/20 06:32 Baso # (Auto) 0.0 K/mm3 (0.0-0.1) 07/28/20 06:32 Add Manual Diff Complete 07/26/20 23:44 Total Counted 100 07/26/20 23:44 Seg Neutrophils % 78.6 % (40.0-70.0) H 07/28/20 06:32 Seg Neuts % (Manual) 52.0 % (40.0-70.0) 07/26/20 23:44 Lymphocytes % (Manual) 36.0 % (13.4-35.0) H 07/26/20 23:44 Monocytes % (Manual) 8.0 % (0.0-7.3) H 07/26/20 23:44 Eosinophils % (Manual) 3.0 % (0.0-4.3) 07/26/20 23:44 Basophils % (Manual) 1.0 % (0.0-1.8) 07/26/20 23:44 Nucleated RBC % Not Reportable 07/26/20 23:44 Seg Neutrophils # 7.9 K/mm3 (1.8-7.7) H 07/28/20 06:32 Seg Neutrophils # Man 9.5 K/mm3 (1.8-7.7) H 07/26/20 23:44 Band Neutrophils # 0.0 K/mm3 07/26/20 23:44 Lymphocytes # (Manual) 6.6 K/mm3 (1.2-5.4) H 07/26/20 23:44 Abs React Lymphs (Man) 0.0 K/mm3 07/26/20 23:44 Monocytes # (Manual) 1.5 K/mm3 (0.0-0.8) H 07/26/20 23:44 Eosinophils # (Manual) 0.5 K/mm3 (0.0-0.4) H 07/26/20 23:44 Basophils # (Manual) 0.2 K/mm3 (0.0-0.1) H 07/26/20 23:44 Metamyelocytes # 0.0 K/mm3 07/26/20 23:44 Myelocytes # 0.0 K/mm3 07/26/20 23:44 Promyelocytes # 0.0 K/mm3 07/26/20 23:44 Blast Cells # 0.0 K/mm3 07/26/20 23:44 WBC Morphology Not Reportable 07/26/20 23:44 Hypersegmented Neuts Not Reportable 07/26/20 23:44 Hyposegmented Neuts Not Reportable 07/26/20 23:44 Hypogranular Neuts Not Reportable 07/26/20 23:44 Smudge Cells Not Reportable 07/26/20 23:44 Toxic Granulation Not Reportable 07/26/20 23:44 Toxic Vacuolation Not Reportable 07/26/20 23:44 Dohle Bodies Not Reportable 07/26/20 23:44 Pelger-Huet Anomaly Not Reportable 07/26/20 23:44 Sherlyn Rods Not Reportable 07/26/20 23:44 Platelet Estimate Not Reportable 07/26/20 23:44 Clumped Platelets Not Reportable 07/26/20 23:44 Plt Clumps, EDTA Not Reportable 07/26/20 23:44 Large Platelets Not Reportable 07/26/20 23:44 Giant Platelets Not Reportable 07/26/20 23:44 Platelet Satelliting Not Reportable 07/26/20 23:44 Plt Morphology Comment Not Reportable 07/26/20 23:44 RBC Morphology Not Reportable 07/26/20 23:44 Dimorphic RBCs Not Reportable 07/26/20 23:44 Polychromasia Not Reportable 07/26/20 23:44 Hypochromasia 1+ 07/26/20 23:44 Poikilocytosis Not Reportable 07/26/20 23:44 Anisocytosis 1+ 07/26/20 23:44 Microcytosis Few 07/26/20 23:44 Macrocytosis Not Reportable 07/26/20 23:44 Spherocytes Not Reportable 07/26/20 23:44 Pappenheimer Bodies Not Reportable 07/26/20 23:44 Sickle Cells Not Reportable 07/26/20 23:44 Target Cells Not Reportable 07/26/20 23:44 Tear Drop Cells Not Reportable 07/26/20 23:44 Ovalocytes Not Reportable 07/26/20 23:44 Helmet Cells Not Reportable 07/26/20 23:44 [place] Bodies Not Reportable 07/26/20 23:44 [place] Rings Not Reportable 07/26/20 23:44 [place] Cells Not Reportable 07/26/20 23:44 Bite Cells Not Reportable 07/26/20 23:44 Crenated Cell Not Reportable 07/26/20 23:44 Elliptocytes Not Reportable 07/26/20 23:44 Acanthocytes (Spur) Not Reportable 07/26/20 23:44 Rouleaux Not Reportable 07/26/20 23:44 Hemoglobin C Crystals Not Reportable 07/26/20 23:44 Schistocytes Not Reportable 07/26/20 23:44 Malaria parasites Not Reportable 07/26/20 23:44 Edin Bodies Not Reportable 07/26/20 23:44 Hem Pathologist Commnt No 07/26/20 23:44 ABG pH 7.406 pH Units (7.350-7.450) 07/27/20 Unknown ABG pCO2 34.0 mm Hg 07/27/20 Unknown ABG pO2 125.7 mm Hg (80.0-90.0) H 07/27/20 Unknown ABG HCO3 20.9 mmol/L (20.0-26.0) 07/27/20 Unknown ABG O2 Saturation 98.5 % (95.0-99.0) 07/27/20 Unknown ABG O2 Content 14.5 (0.0-44) 07/27/20 Unknown ABG Base Excess -3.2 mmol/L (-2.0-3.0) L 07/27/20 Unknown ABG Hemoglobin 10.6 gm/dl (14.0-18.0) L 07/27/20 Unknown ABG Carboxyhemoglobin 1.7 % (0.0-5.0) 07/27/20 Unknown ABG Methemoglobin 0.5 % (0.0-1.5) 07/27/20 Unknown Oxyhemoglobin 96.3 % (95.0-99.0) 07/27/20 Unknown FiO2 21 % 07/27/20 Unknown Sodium 142 mmol/L (137-145) 07/28/20 06:32 Potassium 4.0 mmol/L (3.6-5.0) 07/28/20 06:32 Chloride 105.9 mmol/L (98-107) 07/28/20 06:32 Carbon Dioxide 25 mmol/L (22-30) 07/28/20 06:32 Anion Gap 15 mmol/L 07/28/20 06:32 BUN 8 mg/dL (9-20) L 07/28/20 06:32 Creatinine 1.0 mg/dL (0.8-1.3) 07/28/20 06:32 Estimated GFR > 60 ml/min 07/28/20 06:32 BUN/Creatinine Ratio 8 % 07/28/20 06:32 Glucose 106 mg/dL (75-100) H 07/28/20 06:32 POC Glucose 83 mg/dL (70-105) 07/29/20 05:55 Calcium 9.1 mg/dL (8.4-10.2) 07/28/20 06:32 Total Bilirubin 0.40 mg/dL (0.1-1.2) 07/26/20 23:44 AST 58 units/L (5-40) H 07/26/20 23:44 ALT 23 units/L (7-56) 07/26/20 23:44 Alkaline Phosphatase 78 units/L (35-129) 07/26/20 23:44 Total Creatine Kinase 1147 units/L (55-170) H 07/26/20 23:44 Total Protein 7.8 g/dL (6.3-8.2) 07/26/20 23:44 Albumin 4.8 g/dL (3.9-5) 07/26/20 23:44 Albumin/Globulin Ratio 1.6 % 07/26/20 23:44 TSH 3.550 mlU/mL (0.270-4.200) 07/26/20 23:44 Urine Color Straw (Yellow) 07/27/20 Unknown Urine Turbidity Slightly-cloudy (Clear) 07/27/20 Unknown Urine pH 6.0 (5.0-7.0) 07/27/20 Unknown Ur Specific [place] 1.006 (1.003-1.030) 07/27/20 Unknown Urine Protein <15 mg/dl mg/dL (Negative) 07/27/20 Unknown Urine Glucose (UA) Neg mg/dL (Negative) 07/27/20 Unknown Urine Ketones Neg mg/dL (Negative) 07/27/20 Unknown Urine Blood Mod (Negative) 07/27/20 Unknown Urine Nitrite Neg (Negative) 07/27/20 Unknown Urine Bilirubin Neg (Negative) 07/27/20 Unknown Urine Urobilinogen < 2.0 mg/dL (<2.0) 07/27/20 Unknown Ur Leukocyte Esterase Neg (Negative) 07/27/20 Unknown Urine WBC (Auto) 2.0 /HPF (0.0-6.0) 07/27/20 Unknown Urine RBC (Auto) 4.0 /HPF (0.0-6.0) 07/27/20 Unknown Urine Bacteria (Auto) 1+ /HPF (Negative) 07/27/20 Unknown Triple Phos Crystals Few 07/27/20 Unknown Urine Mucus Few /HPF 07/27/20 Unknown Urine Opiates Screen Negative 07/27/20 Unknown Urine Methadone Screen Negative 07/27/20 Unknown Ur Barbiturates Screen Negative 07/27/20 Unknown Ur Phencyclidine Scrn Negative 07/27/20 Unknown Ur Amphetamines Screen Negative 07/27/20 Unknown U Benzodiazepines Scrn Negative 07/27/20 Unknown Urine Cocaine Screen Negative 07/27/20 Unknown U Marijuana (THC) Screen Presumptive positive 07/27/20 Unknown Drugs of Abuse Note Disclamer 07/27/20 Unknown Plasma/Serum Alcohol < 0.01 % (0-0.07) 07/26/20 23:44 Coronavirus (PCR) Negative (Negative) 07/27/20 Unknown Morales/IV: Voiding Method Incontinent Active Medications - Current Medications Current Medications: Generic Name Dose Route Start Last Admin Trade Name Freq PRN Reason Stop Dose Admin Acetaminophen 650 mg 07/27/20 05:37 Acetaminophen 325 Mg Tab PO Q4H PRN Pain MILD(1-3)/Fever >100.5/DONG Albuterol 2.5 mg 07/27/20 05:37 Albuterol 2.5 Mg/3 Ml Nebu IH Q4HRT PRN Shortness Of Breath Dextrose 50 ml 07/27/20 08:09 Dextrose 50% In Water (25gm) 50 Ml Syringe IV Q30MIN PRN Hypoglycemia Protocol Escitalopram Oxalate 5 mg 07/29/20 10:00 07/29/20 09:31 Escitalopram 10 Mg Tab PO 5 mg DAILY ALTA Administration Famotidine 20 mg 07/28/20 10:00 07/29/20 09:31 Famotidine 20 Mg Tab PO 20 mg BID ALTA Administration Haloperidol Lactate 5 mg 07/28/20 11:19 07/29/20 09:39 Haloperidol Lactate 5 Mg/1 Ml Inj IV 5 mg Q6H PRN Administration Agitation Heparin Sodium (Porcine) 5,000 unit 07/27/20 06:00 07/29/20 06:10 Heparin 5,000 Unit/1 Ml Vial SUB-Q 5,000 unit Q8HR ALTA Administration Hydralazine HCl 10 mg 07/27/20 05:40 Hydralazine 20 Mg/1 Ml Inj IV Q6H PRN htn Hydrophilic Ointment 1 applic 07/26/20 23:35 Lip Therapy Vaseline TP Q2HR PRN Dry Lips Levetiracetam 1,000 mg/ 110 mls @ 400 mls/hr 07/27/20 15:00 07/29/20 10:05 Dextrose IV 400 mls/hr Q12HR ALTA Administration Insulin Human Regular 0 units 07/27/20 09:00 07/29/20 06:08 Insulin Regular, Human 100 Units/1 Ml SUB-Q Not Given Q6HR [facility] Protocol Lorazepam 2 mg 07/27/20 07:51 07/28/20 23:49 Lorazepam 2 Mg/Ml Vial IV 2 mg Q4H PRN Administration AGITATION Multi-Ingred Cream/Lotion/Oil/Oint 1 applic 07/26/20 23:35 Mineral Oil/Petrolatum, White Ophth Oint 3.5 Gm OU Q4HR PRN Dry Eye(s) Ondansetron HCl 4 mg 07/27/20 05:37 Ondansetron 4 Mg/2 Ml Inj IV Q8H PRN Nausea And Vomiting Sodium Chloride 10 ml 07/27/20 10:00 07/29/20 09:32 Sodium Chloride 0.9% 10 Ml Flush Syringe IV 10 ml BID ALTA Administration Sodium Chloride 10 ml 07/27/20 05:37 Sodium Chloride 0.9% 10 Ml Flush Syringe IV PRN PRN LINE FLUSH Nutrition/Malnutrition Assess - Dietary Evaluation Nutrition/Malnutrition Findings: Nutrition Notes Start: 07/27/20 07:32 Freq: Status: Active Protocol: Document 07/27/20 07:32 LO (Rec: 07/27/20 07:37 LO [id number]) Nutrition Notes Need for Assessment generated from: MD Order Initial or Follow up Assessment Current Diagnosis Respiratory Failure Other Pertinent Diagnosis seizure disorder, hx TBI Current Diet NPO Labs/Tests BUN 8 Cr 1.9 BG 255 AST 58 Pertinent Medications Propofol at 14.76 ml/hr NS at 125 ml/hr Height 5 ft 10 in Weight 82 kg [place] Body Weight (kg) 75.45 BMI 25.9 Weight Status Appropriate Subjective/Other Information MD order to evaluate nutritional intake and for TPN . Pt on vent and on hold in ED . Per MD Wick, TPN consult an error; pt likely extubated tomorrow, however, can start TF. Burn Absent Trauma Absent Current % PO Negligible Minimum of two criteria No physical signs of malnutrition #1 Nutrition Diagnosis Inadequate oral intake Etiology ARF As Evidenced by Signs and Symptoms Pt on vent and unable to consume PO Is patient on ventilator? Yes Is Patient Ambulatory and/or Out of Bed No REE-([facility]-confined to bed) 0483.62 Calculation Used for Recommendations [facility] Additional Notes Protein: (1.2-2g/kg) 98-164g Fluid: 1 ml/kcal Nutrition Intervention Change Diet Order: Start TF when able Nutrition Support: Osmolite 1.5 at 60ml/hr Flush 175 ml q4h Kcal 2,160 Protein (gm) 90 Carbohydrates (gm) 293 Fat (gm) 71 Fluid (mL) 1,097 Goal #1 Start TF or extubation Anticipated Discharge Needs: Unable to determine at this time Follow-Up By: 07/29/20 Additional Comments FU for TF start/tolerance or extubation and BG, renal labs
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
[2020-07-29] MEDS: LORazepam 2 MG/ML VIAL IV PRN ×2 (12:23→16:34)
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
[2020-07-30] MEDS: INSULIN REGULAR, HUMAN 100 UNITS/1 ML SUB-Q SCH ×2 (01:10→07:10)
[2020-07-30] MEDS: HEPARIN 5,000 UNIT/1 ML VIAL SUB-Q SCH (05:35)
[2020-07-30] MEDS: LORazepam 2 MG/ML VIAL IV PRN (09:20)
[2020-07-30] MEDS: ESCITALOPRAM 10 MG TAB PO SCH (09:21)
[2020-07-30] MEDS: FAMOTIDINE 20 MG TAB PO SCH (09:21)
[2020-07-30] MEDS: levETIRAcetam 1,000 MG in DEXTROSE 5% IN WATER 100 ML IV SCH (09:22)
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
--- NOTE | 2020-07-30 11:31 | Discharge Summary ---
Providers - Providers Date of Admission: 07/27/20 04:09 Date of discharge: 07/30/20 Attending physician: ANAHI ROJO MD 07/26/20 23:35 Consult to Dietitian/Nutrition [CONS] Routine Physician Instructions: Reason For Exam: Reason for Consult: Evaluate nutritional intake 07/27/20 07:21 Consult to Physician [CONS] Routine Comment: Consulting Provider: LYSSA CANNON Physician Instructions: Reason For Exam: Status Epilepticus 07/27/20 07:50 Consult to Dietitian/Nutrition [CONS] Routine Physician Instructions: Reason For Exam: Reason for Consult: Write/Manage TPN/PPN Primary care physician: CARDING DOUBLER Hospitalization Reason for admission: Seizure disorder Condition: Good Hospital course: This is a 24-year-old male with seizures and TBI was monitored for status epilepticus, acute respiratory failure, hyperglycemia, acute kidney injury and rhabdomyolysis -[facility], neurology consulted, appreciate recommendations -Keppra 1000 mg x 1, fosphenytoin 1600 mgx1 in the emergency department -Keppra 1000 mg twice daily -Pulmonary hygiene -Haldol as needed -Seizure and aspiration precautions -Continue home lexapro -Hydralazine PRN -SSI, Accu-Cheks every 6 -07/26 CT head shows confluent regions of hypodensity and volume loss within the bilateral frontal lobes, findings may be secondary to previous trauma or ischemia, postsurgical changes from right convexity craniectomy, no evidence of mass-effect or midline shift, or acute intracranial hemorrhage -07/27 MRI Brain with no definite intracranial abnormality with a tiny chronic subdural hematoma over the right cerebral convexity similar to prior exam. Extracranial scalp hematoma in the front frontal parietal scalp similar to prior exam. Stable multifocal frontotemporal encephalomalacia secondary to previous trauma. -07/28 EEG shows mildly abnormal be due to low voltage which is suggestive of encephalopathic process and/or postictal state and/or drug effect. No epileptiform discharges -07/27 CXR shows some minor left basilar atelectasis History 07/29/2020: Patient seen and examined, more arousable this morning, no agitation. Sleeping in bed, denies any pain or headaches. MRI pending. 07/30/2020: Patient seen and examined, patient states that he is feeling improved, wants to go home. Spoke with mother, will give prescription for Keppra. Advised she needs to obtain referral to neurologist for continued care. Agreed to plan. Stable for discharge. Disposition: DC-01 TO HOME OR SELFCARE Final Discharge Diagnosis (Prints w/discharge instructions): Status epilepticus. Acute hypoxic respiratory failure, extubated 07/28. Acute kidney injury, improving/resolved. Rhabdomyolysis. Leukocytosis (improved). Hypochloremia (resolved). Metabolic acidosis (resolved). UDS positive for marijuana. COVID 19 PUI, ruled out. Hyperglycemia. Hx of TBI. Hx of Seizures Time spent for discharge: 35 minutes Core Measure Documentation - Palliative Care Palliative Care/ Comfort Measures: Not Applicable - Core Measures Any of the following diagnoses?: none Exam - Physical Exam Narrative exam: General appearance: no acute distress, well-nourished Head: Surgical scar on the right cranium, no signs of trauma EENT: PERRL, EOM intact, hearing intact, clear oral mucosa Respiratory: bilateral CTA, negative: rales, rhonchi, wheezing Cardiovascular: Regular rate/rhythm, Normal S1 & S2. No gallop, rub Extremities: no ischemia, No edema, normal temperature, normal color, Full ROM Abdominal: soft, no tenderness, non-distended, normal bowel sounds Integumentary: Present: clear, warm, dry no wounds, no erythema noted Neurologic: CNII-XII intact, moves all extremities, no sensory or motor abnormalities - Constitutional Vitals: Temp Pulse Resp BP Pulse Ox 98.2 F 66 18 144/71 98 07/30/20 08:52 07/30/20 08:52 07/30/20 08:52 07/30/20 08:52 07/30/20 09:37 Plan Activity: no restrictions Diet: regular Follow up with: PRIMARY CAREMD [Primary Care Provider] - 3-5 Days Prescriptions: levETIRAcetam [Keppra TAB] 1,000 mg PO BID 90 Days #180 tab
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
--- NOTE | 2020-07-30 17:01 | Cat Scan Report ---
CT head/brain wo con INDICATION: fall, head trauma on left frontal cranium. TECHNIQUE: All CT scans at this location are performed using CT dose reduction for ALARA by means of automated e xposure control. COMPARISON: Brain MRI on 07/29/2020 FINDINGS: There is a stable right cerebral convexity small subdural hematoma measuring about 5 mm in side-to-si de dimension, without significant midline shift. Extrarenal scalp hematoma over the right calvarial c ranioplasty site is decreasing in size. There is no new acute hemorrhage. There is stable chronic enc ephalomalacia in the anterior frontal lobes from prior trauma. The included paranasal sinuses and mastoid air cells are clear. The orbits appear unremarkable. IMPRESSION: 1. Unchanged small right cerebral convexity subdural hematoma without adverse mass effect. No adverse change from recent prior head imaging exams. Signer Name: Ben Singh MD Signed: 07/30/2020 4:57 PM Workstation Name: [id number]
[2020-07-30 18:46] VITALS: BP 137/64
--- NOTE | 2020-07-30 18:54 | Electrocardiograph Report ---
[facility] Test Date: 2020-07-27 Test Time: 04:36:48 Pat Name: MARCIAL POWERS Department: Room: A456 Gender: M Production Assembler: : 1995 Requested By: MARCOS CLARK Order Number: [id number] Reading MD: Klever Colbert Measurements Intervals [place] Rate: 82 P: -37 [place]: 112 QRS: 87 QRSD: 89 T: 69 QT: 338 QTc: 395 Interpretive Statements Sinus rhythm ST elev, probable normal early repol pattern No previous ECG available for comparison Electronically Signed On 07-30-2020 18:54:22 EDT by Klever Colbert
== END 2020-07-30 19:55 | disposition home or self-care (01) | DRG 208 ==
LOC: ED 23:17 → CC1 07-27 04:09 → 4A 07-28 21:02
PROVIDERS: ADMIT Hospitalist; ATTEND Family Medicine
PROC: 4A033R1 Measurement of Arterial Saturation, Peripheral, Percutaneous Approach (ICD-10-PCS; principal; 2020-07-27)
PROC: 5A1945Z Respiratory Ventilation, 24-96 Consecutive Hours (ICD-10-PCS; 2020-07-27)
PROC: 0BH17EZ Insertion of Endotracheal Airway into Trachea, Via Natural or Artificial Opening (ICD-10-PCS; 2020-07-27)
DX: J96.01 Acute respiratory failure with hypoxia (principal); N17.9 Acute kidney failure, unspecified; M62.82 Rhabdomyolysis; E87.2 Acidosis; R73.9 Hyperglycemia, unspecified; Z87.820 Personal history of traumatic brain injury; G40.901 Epilepsy, unspecified, not intractable, with status epilepticus; Z20.822 Contact with and (suspected) exposure to COVID-19; E87.8 Other disorders of electrolyte and fluid balance, not elsewhere classified; D72.829 Elevated white blood cell count, unspecified; F12.10 Cannabis abuse, uncomplicated
CPT/HCPCS: 36415; 36600; 70450; 70551; 71045; 74018; 80048; 80053; 80307; 80320; 81001; 82550; 82803; 82805; 82962; 84443; 85007; 85025; 85027; 93005; 94002; 94003; 94640; 95819; G0378; G0480; J1630; J1644; J1953; J2060; J2704; J7030; J7042; Q2009; U0003

== ENCOUNTER 2020-12-16 16:03 | Emergency (ER) | payer SELFPAY ==
[2020-12-16] MEDS ORDERED: LORazepam 2 MG/ML VIAL IM STA (16:11)
[2020-12-16] MEDS ORDERED: HALOPERIDOL LACTATE 5 MG/1 ML INJ IM ONE (16:11)
[2020-12-16] MEDS ORDERED: levETIRAcetam 1000 MG/NS 0.75% 1,000 MG/100 ML BAG IV ONE (16:12)
[2020-12-16] MEDS ORDERED: oxyCODONE /ACETAMINOPHEN 5-325MG TAB PO ONE (16:50)
[2020-12-16 17:22] LABS: Basophils # (Auto) 0.1 K/mm3 (0.0-0.1); Basophils % (Auto) 0.7 % (0.0-1.8); Eosinophils # (Auto) 0.2 K/mm3 (0.0-0.4); Eosinophils % (Auto) 2.5 % (0.0-4.3); Hemoglobin 12.6 gm/dl (11.8-15.2); Lymphocytes # (Auto) 1.3 K/mm3 (1.2-5.4); Lymphocytes % (Auto) 15.9 % (13.4-35.0); Mean Corpuscular HGB Conc 32 % (32-34); Mean Corpuscular Volume 82 fl (84-94); Monocytes # (Auto) 0.5 K/mm3 (0.0-0.8); Monocytes % (Auto) 6.1 % (0.0-7.3); Platelet Count 285 K/mm3 (140-440); Red Blood Count 4.89 M/mm3 (3.65-5.03)
[2020-12-16 17:25] LABS: BUN/Creatinine Ratio 6; Blood Urea Nitrogen 7 mg/dL (9-20); Calcium 9.4 mg/dL (8.4-10.2); Hemolysis Index 4; Red Cell Distribution Width 22.5 % (13.2-15.2)
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
[2020-12-16 19:50] VITALS: BP 114/70
== END 2020-12-16 19:50 | disposition home or self-care (01) ==
LOC: ED 16:03
DX: R56.9 Unspecified convulsions (principal); R41.82 Altered mental status, unspecified; Z79.899 Other long term (current) drug therapy
CPT/HCPCS: 36415; 80048; 85025; 96365; 96372; 99284; J1953

== ENCOUNTER 2021-01-18 08:17 | Emergency (ER) | payer SELFPAY ==
[2021-01-18] MEDS ORDERED: SODIUM CHLORIDE 0.9% 1000 ML 1,000 ML IV ONE (08:45)
[2021-01-18] MEDS ORDERED: levETIRAcetam 1000 MG/NS 0.75% 1,000 MG/100 ML BAG IV ONE (08:45)
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
[2021-01-18 09:37] LABS: Basophils # (Auto) 0.1 K/mm3 (0.0-0.1); Basophils % (Auto) 0.9 % (0.0-1.8); Eosinophils # (Auto) 0.1 K/mm3 (0.0-0.4); Eosinophils % (Auto) 1.2 % (0.0-4.3); Mean Corpuscular HGB Conc 30 % (32-34); Mean Corpuscular Volume 85 fl (84-94); Monocytes # (Auto) 0.6 K/mm3 (0.0-0.8); Monocytes % (Auto) 8.6 % (0.0-7.3); Platelet Count 262 K/mm3 (140-440); Red Blood Count 4.91 M/mm3 (3.65-5.03); Red Cell Distribution Width 19.8 % (13.2-15.2)
[2021-01-18 09:40] LABS: Hematocrit 41.7 % (35.5-45.6); Hemoglobin 12.6 gm/dl (11.8-15.2)
[2021-01-18 09:55] LABS: Alanine Aminotransferase 23 units/L (7-56); Albumin 4.8 g/dL (3.9-5); BUN/Creatinine Ratio 6; Blood Urea Nitrogen 7 mg/dL (9-20); Calcium 9.3 mg/dL (8.4-10.2); Hemolysis Index 27
[2021-01-18 12:22] VITALS: BP 141/66
--- NOTE | 2021-01-20 10:15 | Electrocardiograph Report ---
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
== END 2021-01-18 12:25 | disposition home or self-care (01) ==
LOC: ED 08:17
DX: R56.9 Unspecified convulsions (principal); Z87.820 Personal history of traumatic brain injury; Z79.899 Other long term (current) drug therapy
CPT/HCPCS: 36415; 80053; 82550; 85025; 93005; 96361; 96374; 99284; J1953; J7030; 80320; Q0162; G0480

== ENCOUNTER 2021-08-01 08:22 | Emergency (ER) | payer SELFPAY ==
[2021-08-01] MEDS ORDERED: levETIRAcetam 1000 MG/NS 0.75% 1,000 MG/100 ML BAG IV ONE (08:43)
[2021-08-01] MEDS ORDERED: LORazepam 2 MG/ML VIAL IV ONE (08:46)
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
[2021-08-01 09:20] LABS: Basophils % (Auto) 0.6 % (0.0-1.8); Eosinophils # (Auto) 0.2 K/mm3 (0.0-0.4); Eosinophils % (Auto) 2.6 % (0.0-4.3); Hematocrit 42.5 % (35.5-45.6); Hemoglobin 13.4 gm/dl (11.8-15.2); Lymphocytes # (Auto) 2.2 K/mm3 (1.2-5.4); Lymphocytes % (Auto) 29.7 % (13.4-35.0); Mean Corpuscular HGB Conc 32 % (32-34); Mean Corpuscular Volume 88 fl (84-94); Monocytes # (Auto) 0.6 K/mm3 (0.0-0.8); Monocytes % (Auto) 8.1 % (0.0-7.3); Platelet Count 241 K/mm3 (140-440); Red Blood Count 4.84 M/mm3 (3.65-5.03); Red Cell Distribution Width 16.7 % (13.2-15.2)
[2021-08-01 09:42] LABS: BUN/Creatinine Ratio 12; Blood Urea Nitrogen 15 mg/dL (9-20); Calcium 9.3 mg/dL (8.4-10.2); Hemolysis Index 215
[2021-08-01 13:37] VITALS: BP 118/70
== END 2021-08-01 13:30 | disposition home or self-care (01) ==
LOC: ED 08:22
DX: R56.9 Unspecified convulsions (principal); Z98.890 Other specified postprocedural states
CPT/HCPCS: 36415; 80048; 83735; 85025; 96374; 96375; 99283; J1953; J2060